=== PATIENT | female | born 1945 | race Caucasian/White ===

== ENCOUNTER 2016-09-08 08:38 | Emergency (ER) | payer OTHER ==
--- NOTE | ~2016-09-08 | CR72 ---
[facility]. [facility] A Service of [facility] & [facility] RADIOLOGY TEXT RESULTS PATIENT: HEMALATHA MATTSON LOCATION: SED : 44 UNIT #: [id number] AGE: [address]: Je Anguiano MD SEX: F ORDER DR: [id number] [place] [id number] E MR#: [id number] Acc #: [id number] NAME: HEMALATHA MATTSON : 1945 SEX: F STUDY DATE/TIME: 09/08/2016 8:57 UNIT: SED ROOM: STUDY DESCRIPTION: CR Chest Single View Portable Attending Physician: Je Anguiano M.D. Ordering Physician: Je Anguiano M.D. Primary Care Physician: Violetta Schrader M.D. MEDICAL IMAGING REPORT This report is preliminary unless electronic signature is present. EXAM Single portable AP view of the chest performed on 09/08/2016 at 09:27 hours. HISTORY 70-year-old female with shortness of breath. Patient has low potassium as well. Shortness of breath starting last night. FINDINGS In comparison to the previous exam of 08/30/2016, there has been no change in the dialysis catheter from right subclavian approach. Tip in the SVC. Heart is not enlarged and postsurgical findings from prior median sternotomy are seen with 8 intact sternal suture wires. The lungs are unchanged and no new pulmonary infiltrate or opacity is seen. No pneumothorax is present. IMPRESSION Stable chest with no change in the position of the right-sided central line. The heart is not enlarged and postsurgical changes from prior median sternotomy again appreciated. Dictated by... Timmy Saez M.D. THIS IS AN ELECTRONICALLY VERIFIED REPORT Timmy Saez M.D. at 09/08/2016 5:33 PM RP/gz TD: 09/08/2016 13:12 JOB #: [id number] MEDICAL IMAGING REPORT
[~2016-09-08 08:38] MED LIST: ASPIRIN81 MG PO; BAYER CHEWABLE81 MG PO; COREG PO; COUMADIN PO; DELTASONE20 MG PO; FLAGYL250 M1 PO; LASIX80 MG PO; LIPITOR80 MG PO; LISINOPRIL PO; LOMOTIL TABLET1 TAB PO; LOPRESSOR PO; LOVENOX SUBQ; MAXAPAP325 MG PO; MOBIC PO; OMNICEF300 MG PO; PAXIL40 MG PO; PEPCID AC20 M2 PO; PREDNISONE10 MG PO; PROTONIX PO
[2016-09-08 09:11] LABS: URINE SOURCE CLEAN CATCH
[2016-09-08 09:13] LABS: URINE APPEARANCE CLEAR; URINE BILIRUBIN NEG (NEG); URINE BLOOD 1+ (NEG); URINE COLOR YELLOW; URINE GLUCOSE NEG (NORM); URINE KETONE NEG (NEG); URINE LEUKOCYTE ESTERASE 1+ (NEG); URINE NITRATE NEG (NEG); URINE PROTEIN NEG (NEG); URINE SPECIFIC GRAVITY <=1.005 (1.003-1.035); URINE UROBILINOGEN 0.2 MG/DL (NORM)
[2016-09-08 09:23] LABS: MICRO INDICATED? YES
[2016-09-08 09:27] LABS: BASOPHIL# 0.2 X10e3 (0-0.3); BASOPHIL% 1.5 % (0-2.5); EOSINOPHIL# 0.2 X10e3 (0-0.7); EOSINOPHIL% 1.5 % (0.0-7.0); HEMATOCRIT 29.7 % (35.0-45.0); HEMOGLOBIN 9.7 gm/dL (12.0-16.0); LYMPHOCYTE# 0.8 X10e3 (1.0-3.5); MEAN CELL VOLUME 90.8 FL (83-96); MEAN CORPUSCULAR HEMOGLOBIN 29.7 PG (28-34); MEAN CORPUSCULAR HGB CONC 32.7 g/dL (30-36); MEAN PLATELET VOLUME 7.5 FL (6.5-11.5); MONOCYTE# 1.3 X10e3 (0-1.0); MONOCYTE% 9.6 % (3.0-12.0); NEUTROPHIL# 10.8 X10e3 (1.5-7.1); NEUTROPHIL% 81.4 % (40-75); PLATELET COUNT 204 X10e3 (140-420); RED BLOOD COUNT 3.27 X10e (3.90-5.30); RED CELL DISTRIBUTION WIDTH 16.6 % (11.0-15.5); WHITE BLOOD COUNT 13.3 X10e3 (4.0-10.5)
[2016-09-08 09:32] LABS: CULTURE INDICATED? YES; URINE BACTERIA 1+ (NEG); URINE SQUAMOUS EPITHELIAL CELL FEW /[HPF]; URINE WBC 0-2 /[HPF] (0-5)
[2016-09-08 09:34] LABS: POC - CKMB 1.7 ng/mL (0.0-7.9); POC - TROPONIN <0.05 ng/mL (<=0.05)
[2016-09-08 09:35] LABS: DIFF IND NO
[2016-09-08 10:03] LABS: BILIRUBIN, DIRECT 0.2 mg/dL (0.0-0.2); BILIRUBIN,INDIRECT 0.4 mg/dL (0.0-0.9); BILIRUBIN,TOTAL 0.6 mg/dL (0.2-2.0); BUN/CREATININE RATIO 10.19; CALCIUM SERUM 7.6 mg/dL (8.4-10.2); CREATININE SERUM 5.1 mg/dL (0.6-1.4); GLOM FILT RATE Estimated 8.9 mL/min (>60); POTASSIUM 4.3 mmol/L (3.5-5.1); PROTEIN TOTAL SERUM 5.9 g/dL (6.0-8.3)
== END 2016-09-08 10:34 | disposition home or self-care (01) ==
LOC: SED 08:38
PROVIDERS: Emergency Medicine
DX: N18.9 Chronic kidney disease, unspecified (principal); E78.5 Hyperlipidemia, unspecified; D64.9 Anemia, unspecified; F17.200 Nicotine dependence, unspecified, uncomplicated; K21.9 Gastro-esophageal reflux disease without esophagitis; E87.1 Hypo-osmolality and hyponatremia; Z90.710 Acquired absence of both cervix and uterus; Z88.5 Allergy status to narcotic agent
CPT/HCPCS: 36415; 71010; 80048; 80076; 81003; 82553; 83874; 84484; 85025; 87086; 99284

== ENCOUNTER 2016-11-01 13:31 | Inpatient (IN) | payer OTHER ==
--- NOTE | ~2016-11-01 | XA81 ---
[facility] A Service of [facility] RADIOLOGY TEXT RESULTS PATIENT: HEMALATHA MATTSON LOCATION: B 549-01 : 44 UNIT #: [id number] AGE: [address]: Violetta Schrader MD SEX: F ORDER DR: [id number] [facility] [address] [place], [place] [address] [id number] I MR#: [id number] Acc #: [id number] NAME: HEMALATHA MATTSON. : 1945 SEX: F STUDY DATE/TIME: 11/02/2016 14:53 UNIT: C5B ROOM: [facility] STUDY DESCRIPTION: XA CVC Remove Tunneled Cath WO Attending Physician: Vioeltta Schrader M.D. Ordering Physician: Penelope Ronquillo M.D. Primary Care Physician: Violetta Schrader M.D. MEDICAL IMAGING REPORT This report is preliminary unless electronic signature is present EXAM Tunnelled catheter removal. HISTORY Renal failure requiring dialysis. Patient underwent placement of a tunneled catheter on August 27, 2016. Her dialysis was stopped last Wednesday and removal of a catheter has been requested. PROCEDURE The risks, benefits, and alternatives to the procedure were explained to the patient and signed, informed consent was obtained. The patient was placed supine on the angiographic table, prepped and draped in the usual sterile fashion and initial fluoroscopic image was obtained which showed the preexisting right internal jugular vein catheter terminating within the superior vena cava. This image was permanently saved. Skin and subcutaneous tissues around the catheter were anesthetized with buffered lidocaine. The stitches were removed and the catheter was removed using a combination of blunt and sharp dissection and gentle manual traction. A final fluoroscopic image was obtained which showed no residual catheter fragment. Patient tolerated the procedure well and there were no immediate complications. Total fluoroscopy time was 0.1 minutes. IMPRESSION Technically successful removal of the patient's right internal jugular vein tunneled dialysis catheter in its entirety. Fluoroscopy was used during the procedure and permanent images were saved. Dictated by... Belia Humphrey M.D. [facility] A Service of [facility] RADIOLOGY TEXT RESULTS PATIENT: HEMALATHA MATTSON LOCATION: [place] [address] : 44 UNIT #: [id number] AGE: [address]: Violetta Schrader MD SEX: F ORDER DR: THIS IS AN ELECTRONICALLY VERIFIED REPORT Belia Humphrey M.D. at 11/03/2016 12:55 PM AFF/tmw TD: 11/03/2016 09:59 JOB #: [id number] MEDICAL IMAGING REPORT Page 1 of 1 COPY
--- NOTE | ~2016-11-01 | DS ---
Unit #: [id number] #: [id number] Patient: HEMALATHA MATTSON [id number] [address] [address] [id number] I MR#: [id number] NAME: HEMALATHA MATTSON ROOM: 549 Age: 71 Sex: F Admission Date: 11/01/2016 : 1945 Discharge Date: 11/09/2016 Attending Physician: Violetta Schrader M.D. Primary Care Physician: Violetta Schrader M.D. DISCHARGE SUMMARY DISPOSITION Date of discharge to rehab facility, November 09, 2016. FINAL DIAGNOSES 1. Sepsis. 2. Methicillin-resistant Staphylococcus aureus bacteremia. 3. Tricuspid valve vegetation/endocarditis. 4. L1-L2 diskitis. 5. Acute kidney injury with a history of chronic kidney disease. Patient has been off hemodialysis for two weeks. 6. Nonischemic cardiomyopathy with ejection fraction of 15% to 20%. 7. Chronic respiratory failure on home O2. 8. Chronic obstructive pulmonary disease. 9. Left-sided disk herniation at L1-L2 in addition to diskitis. 10. Chronic obstructive pulmonary disease. 11. Paroxysmal atrial fibrillation. 12. History of lacunar infarct in the past. 13. Left atrial myxoma/thrombus, status post resection in 2003. 14. Hypertension. 15. Nicotine abuse. DISCHARGE MEDICATIONS 1. IV vancomycin through December 15, 2016. 2. Vitamin D2 at 50,000 units q. weekly. 3. Furosemide 20 mg twice a day. 4. Paxil 40 mg daily. 5. Neurontin 200 mg three times a day. 6. Lovenox 30 mg subcutaneous daily. 7. Spiriva 18 mcg inhaler daily. 8. Tylenol 650 q.6 p.r.n. 9. Albuterol nebulizer treatment four times a day. 10. Phos-Lo two tablets b.i.d. 11. Westbrook 10/325 one tablet q.4 p.r.n. 12. Aspirin 81 mg daily. 13. Pepcid 20 mg daily. 14. Fish oil capsule three times a day. 15. Lipitor 80 mg daily. CONSULTATIONS DURING HOSPITALIZATION 1. Dr. Gilbert Ronquillo from renal services. 2. Dr. Jarvis Banks from spine surgery services. 3. Dr. Carvalho from infectious disease services. ADMITTING PHYSICIAN Unit #: [id number] #: [id number] Patient: HEMALATHA MATTSON Dr. Violetta Schrader. DISCHARGING PHYSICIAN Dr. Violetta Schrader. DIAGNOSTIC STUDIES LABORATORY: Lab workup on discharge: Sodium 135, potassium 4.2, chloride 92, BUN 25, creatinine 1.6. WBC 15, hemoglobin 12.9, hematocrit 41, platelet count 373,000. Blood cultures on November 01 and November 02 positive for MRSA. Blood cultures done on November 04, most recent one, was negative for any growth. IMAGING: Significant imaging studies done during hospitalization: CT scan: CT scan of the head without contrast which shows no acute intracranial abnormalities. CT scan of the abdomen and pelvis was done which shows no acute finding in the abdomen or pelvis. No free fluid or inflammatory stranding, mild atelectasis in the posterior lung bases, mild sigmoid diverticulosis but no diverticulitis. MRI of the lumbar which shows findings are suspicious for diskitis involving the L1-L2 disc, especially towards the left side. There has been a significant change to the disc since the previous exam. There is no evidence of paraspinous abscess. There is also a left-sided focal disc herniation at L1-L2 that is new. Patient also has moderate degenerative changes at the lower 4 lumbar discs. PROCEDURE PERFORMED DURING HOSPITALIZATION Tunneled catheter removal. Patient underwent placement of the tunneled catheter on August 27, 2016. Dialysis has been stopped and most likely this infection was secondary to tunneled catheter and that was removed on November 03, [address] Humphrey, interventional radiologist. HOSPITAL COURSE Ms. Hemalatha Mattson is a 71-year-old female who is very well known to me from multiple admissions and from office setting, came because of abdominal pain, generalized weakness, inability to ambulate. Patient was found in the bathtub and could not wake her up, plus she could not get up. EMS was called. Patient was brought to ER. Patient was found to be in sepsis. Blood culture grew MRSA. This was most likely secondary to tunneled catheter. That was removed on . Infectious disease was consulted. Patient was started on IV antibiotics. She is on vancomycin at this time and that needs to be continued until December 16, 2016. SVETA was performed which showed tricuspid vegetation. The patient does have endocarditis too. MRI of the back showed L1-L2 diskitis and disk herniation. Dr. Banks was consulted. As per Dr. Banks, she needs to continue IV antibiotics for six weeks or so. Lumbar brace when she is up and ambulatory as tolerated. If her condition worsens or her pain is insufferable, then debridement and stabilization would be a reasonable option to pursue. Patient had acute kidney injury two months ago, was on hemodialysis but she has stopped hemodialysis almost now for two weeks. Dr. Ronquillo was consulted during hospitalization and we need to continue to observe her renal function. We need to continue to avoid angiotensin receptor blockers and CARINE inhibitors, continue to avoid NSAIDs, continue to avoid Unit #: [id number] #: [id number] Patient: HEMALATHA MATTSON PPIs if possible. Patient does have significant cardiac disease and cardiomyopathy. Fluid status needs to be observed off and on. Patient is on Lasix 20 mg b.i.d. That may need to be increased if it gets worse. PHYSICAL EXAMINATION VITAL SIGNS: On discharge: Blood pressure is 120/86, respiratory rate 18, pulse 73, temperature 98.2. CHEST: Decreased air entry. CARDIOVASCULAR: S1, S2 positive. Regular rhythm. ABDOMEN: Soft. EXTREMITIES: Pulses are palpable. A lot of tenderness in the lumbar spine area. DISCHARGE INSTRUCTIONS 1. The patient will be discharged to rehab facility after PICC line placement. 2. Medications as per med rec. 3. Dr. Potter to follow the patient at rehab. 4. BMP twice a week. 5. CBC once a week. 6. CRP and ESR q. weekly. 7. IV antibiotics through December 16, 2016. 8. Discussed with patient's about plan of care. Dictated by... Heidi Archer TD: 11/09/2016 10:35 JOB #: [id number] DISCHARGE SUMMARY Page 1 of 1 X Violetta Schrader MD X DISCHARGE SUMMARY
--- NOTE | ~2016-11-01 | MR113 ---
[facility] A Service of [facility] & [facility] RADIOLOGY TEXT RESULTS PATIENT: HEMALATHA MATTSON LOCATION: [facility] 549-01 : 44 UNIT #: [id number] AGE: [address]: Violetta Schrader MD SEX: F ORDER DR: [id number] [facility] [address] [place], [place] [address] [id number] I MR#: [id number] Acc #: [id number] NAME: HEMALATHA MATTSON. : 1945 SEX: F STUDY DATE/TIME: 11/03/2016 21:04 UNIT: [facility] ROOM: [facility] STUDY DESCRIPTION: MR Lumbar Wo Contrast Attending Physician: Violetta Schrader M.D. Ordering Physician: Tj Carvalho M.D. Primary Care Physician: Violetta Schrader M.D. MRI CENTER REPORT This report is preliminary unless electronic signature is present. EXAM Lumbar spine MRI HISTORY Back pain, weakness and difficulty walking, accompanied by sepsis. Sudden onset of back pain 3 days ago. TECHNIQUE Multiplanar imaging of the lumbar spine was performed with short and long TR and compared with the previous examination dated 03/05/2015. FINDINGS At L1-2, the disc is degenerated. There is relatively brighter signal in this disc compared to the other lumbar discs and this is new since the previous examination. There are new reactive endplate changes on both sides of the disc. There is a focal left-sided disc herniation at this level as well. The increased signal in the disc is suspicious for diskitis. No paraspinous fluid collections are seen. At L2-3, L3-4 and L4-5, there is disc space narrowing with broad-based posterior disc bulging. This causes moderate canal narrowing at each of these levels. At L5-S1, there is disc space collapse with reactive endplate changes along the posterior disc margin with mild central stenosis. Foraminal narrowing is mild bilaterally as well. The conus is normal. No paraspinous soft tissue masses are seen. IMPRESSION 1. Findings are suspicious for diskitis involving the L1-2 disc especially toward the left side. There has been significant change to this disc since the previous exam. There is no evidence of paraspinous STS. [facility] A Service of [facility] & [facility] RADIOLOGY TEXT RESULTS PATIENT: HEMALATHA MATTSON LOCATION: [facility] 549-01 : 44 UNIT #: [id number] AGE: [address]: Violetta Schrader MD SEX: F ORDER DR: dwayne. 2. There is also a left-sided focal disc herniation at L1-2 that is new since the previous scan in 2014. 3. Moderate degenerative changes at the lower 4 lumbar discs are again noted and show little change from the previous exam. STAT * RESULT Dictated by... Trevin Jeffers M.D. THIS IS AN ELECTRONICALLY VERIFIED REPORT Trevin Jeffers M.D. at 11/04/2016 4:26 PM MJ/hernandez TD: 11/04/2016 11:02 JOB #: [id number] MRI CENTER REPORT Page 1 of 1 COPY
--- NOTE | ~2016-11-01 | EKG ---
PATIENT: HEMALATHA MATTSON UNIT #: [id number] Ventricular Rate: 103 BPM Atrial Rate: 103 BPM P-R Interval: 224 ms QRS Duration: 90 ms Q-T Interval: 338 ms QTC Calculation(Bezet): 442 ms Calculated R [place]: 87 degrees Calculated T [place]: 86 degrees Diagnosis Line: Sinus tachycardia with 1st degree A-V block with Diagnosis Line: frequent Premature ventricular complexes Diagnosis Line: Low voltage QRS Diagnosis Line: Borderline ECG Diagnosis Line: When compared with ECG of 20-AUG-2016 12:11, Diagnosis Line: Premature ventricular complexes are now Present Diagnosis Line: UT interval has increased Diagnosis Line: T wave inversion no longer evident in Anterior Diagnosis Line: leads Diagnosis Line: Confirmed by ENRIQUE VERDIN MD ([id number]) on Diagnosis Line: 11/01/2016 4:00:00 PM INTERPRETING MD: LLOYD
--- NOTE | ~2016-11-01 | CT71 ---
[facility] A Service of [facility] RADIOLOGY TEXT RESULTS PATIENT: HEMALATHA MATTSON LOCATION: C5 549-01 : 44 UNIT #: [id number] AGE: [address]: Violetta Schrader MD SEX: F ORDER DR: [id number] [facility] [address] [place], [place] [address] [id number] I MR#: [id number] Acc #: [id number] NAME: HEMALATHA MATTSON. : 1945 SEX: F STUDY DATE/TIME: 11/01/2016 13:27 UNIT: CEDOF ROOM: 01746 STUDY DESCRIPTION: CT Head Wo Contrast Attending Physician: Violetta Schrader M.D. Ordering Physician: Trevin Mccloud M.D. Primary Care Physician: Violetta Schrader M.D. MEDICAL IMAGING REPORT This report is preliminary unless electronic signature is present EXAM CT head without contrast, 11/01/2016 HISTORY 71-year-old female with confusion and altered mental status beginning last night. Headache beginning today. COMPARISON CT head 08/17/2016 TECHNIQUE Routine unenhanced axial images performed through the brain. This CT exam was performed with one or more of the following radiation dose reduction techniques: automatic exposure control, adjustment of mA and/or kV according to patient size, and iterative reconstruction. FINDINGS No hemorrhage, acute infarction, mass lesion, or abnormal extraaxial fluid collection. No midline shift or focal mass effect. Ventricular system normal in size and configuration. Mild generalized atrophy is unchanged. Moderate chronic small vessel disease is unchanged. Remote right cerebellar hemisphere infarct again noted. No acute bony abnormality. Visualized paranasal sinuses and mastoid air cells are clear. IMPRESSION 1. No acute intracranial abnormality. 2. Stable age-related atrophy and moderate chronic small vessel disease. Remote infarct right cerebellar hemisphere is unchanged. Dictated by... [facility] A Service of [facility] RADIOLOGY TEXT RESULTS PATIENT: HEMALATHA MATTSON LOCATION: C5B 549-01 : 44 UNIT #: [id number] AGE: [address]: Violetta Schrader MD SEX: F ORDER DR: Phil Powell M.D. THIS IS AN ELECTRONICALLY VERIFIED REPORT Phil Powell M.D. at 11/02/2016 8:46 AM Ryan TD: 11/02/2016 00:31 JOB #: [id number] MEDICAL IMAGING REPORT Page 1 of 1 COPY
--- NOTE | ~2016-11-01 | CO ---
Unit #: [id number] #: [id number] Patient: HEMALATHA MATTSON [id number] [address] [address] [id number] I MR#: [id number] NAME: HEMALATHA MATTSON ROOM: [facility] Age: 71 Sex: F Admission Date: 11/01/2016 : 1945 Attending Physician: Violetta Schrader M.D. Primary Care Physician: Violetta Schrader M.D. Requesting Physician: Violetta Schrader M.D. CONSULTATION REPORT HISTORY OF PRESENT ILLNESS The patient is a 71-year-old who reports an increasing history of back pain over the past 2 weeks. She is known to have chronic disk disease in her lumbar spine. She suffers with acute renal failure and MRSA sepsis. SOCIAL HISTORY She is a nonsmoker and nondrinker. ALLERGIES Morphine. HOME MEDICATIONS 1. Xanax. 2. Lortab. 3. Aspirin. 4. Atorvastatin. REVIEW OF SYSTEMS Fourteen point review of systems is negative. PHYSICAL EXAMINATION GENERAL: She is laying comfortably in her hospital room as long as she does not move suddenly. NEUROLOGIC: She has 5/5 strength in her lower extremities. SPINE: Back is minimally tender to palpation. DIAGNOSTIC STUDIES IMAGING: MRI of the lumbar spine shows changes and fluid consistent with L1 diskitis. There is no paraspinous abscess or epidural abscess. There appears to be a left-sided disk herniation at L1-L2 in addition to the diskitis. ASSESSMENT Lumbar diskitis. RECOMMENDATION Aggressive IV antibiotics for six weeks, lumbar brace when she is up and ambulatory as tolerated. If her condition worsens or her pain is insufferable, then debridement and stabilization would be a reasonable option to pursue. Dr. Gilbert Ronquillo is following for her renal issues. Dictated by... Jarvis Banks M.D. Unit #: [id number] #: [id number] Patient: HEMALATHA MATTSON JTM/gz TD: 11/04/2016 14:12 JOB #: [id number] CONSULTATION REPORT Page 1 of 1 X Jarvis Banks MD CONSULTATION REPORT
--- NOTE | ~2016-11-01 | CT4 ---
[facility] A Service of [facility] RADIOLOGY TEXT RESULTS PATIENT: HEMALATHA MATTSON LOCATION: [facility] 549-01 : 44 UNIT #: [id number] AGE: [address]: Violetta Schrader MD SEX: F ORDER DR: [id number] [facility] [address] [place], [place] [address] [id number] I MR#: [id number] Acc #: [id number] NAME: HEMALATHA MATTSON : 1945 SEX: F STUDY DATE/TIME: 11/01/2016 17:00 UNIT: [facility] ROOM: [facility] STUDY DESCRIPTION: CT Abd and Pelv Wo Cont Attending Physician: Violetta Schrader M.D. Ordering Physician: Elena Ventura M.D. Primary Care Physician: Violetta Schrader M.D. MEDICAL IMAGING REPORT This report is preliminary unless electronic signature is present EXAM CT abdomen and pelvis without contrast. HISTORY Diffuse abdomen and back pain since yesterday. This CT exam was performed with one or more of the following radiation dose reduction techniques: automatic exposure control, adjustment of mA and/or kV according to patient size, and iterative reconstruction. FINDINGS CT abdomen and pelvis was performed without contrast. CT ABDOMEN: Mild atelectasis in the posterior lung bases. The liver, gallbladder, spleen, pancreas, kidneys, and adrenal glands are normal. Small umbilical hernia containing fat. No bowel dilatation. No ascites or inflammatory stranding. Normal caliber abdominal aorta. CT PELVIS: Moderate sigmoid diverticulosis. No diverticulitis. Hysterectomy. No free fluid or inflammatory stranding. The urinary bladder is normal. IMPRESSION 1. No acute findings in the abdomen or pelvis. 2. No free fluid or inflammatory stranding. 3. Mild atelectasis in the posterior lung bases. 4. Mild sigmoid diverticulosis but no diverticulitis. 5. Incidental small umbilical hernia containing fat. No bowel herniation. Dictated by... Miguel Melendez M.D. [facility] A Service of [facility] RADIOLOGY TEXT RESULTS PATIENT: HEMALATHA MATTSON LOCATION: [place] [address]- : 44 UNIT #: [id number] AGE: [address]: Violetta Schrader MD SEX: F ORDER DR: THIS IS AN ELECTRONICALLY VERIFIED REPORT Miguel Melendez M.D. at 11/02/2016 11:01 AM Fiona TD: 11/02/2016 05:37 JOB #: [id number] MEDICAL IMAGING REPORT Page 1 of 1 COPY
--- NOTE | ~2016-11-01 | XA166 ---
[facility] A Service of [facility] RADIOLOGY TEXT RESULTS PATIENT: HEMALATHA MATTSON LOCATION: [facility] [address] : 44 UNIT #: [id number] AGE: [address]: Violetta Schrader MD SEX: F ORDER DR: [id number] [facility] [address] [place], [place] [address] [id number] I MR#: [id number] Acc #: [id number] NAME: HEMALATHA MATTSON. : 1945 SEX: F STUDY DATE/TIME: 11/09/2016 14:12 UNIT: [facility] ROOM: [facility] STUDY DESCRIPTION: XA PICC Line Placement WO Port Attending Physician: Violetta Schrader M.D. Ordering Physician: Violetta Schrader M.D. Primary Care Physician: Violetta Schrader M.D. MEDICAL IMAGING REPORT This report is preliminary unless electronic signature is present EXAM PICC line placement ultrasound and fluoroscopy 11/09/2016 HISTORY Patient being discharged for long-term antibiotic therapy. PRE-PROCEDURE The procedure was explained to the patient and/or patient patient account representative including risks, benefits, potential complications and potential for alternative forms of treatment. Informed consent was obtained, and prior to initiating the procedure a formal timeout procedure was performed. PROCEDURE Using full standard sterile barrier technique, including caps, gowns, gloves, masks, as well as sterile skin preparation and standard sterile draping, the right arm was prepped and draped in the usual fashion, and real-time sterile ultrasound guidance was used to localize an arm vein and to confirm vessel patency. A hard copy ultrasound image was recorded. Right basilic vein approach. After local anesthesia with 1% Xylocaine, the vein was punctured using real-time sterile ultrasound guidance, and an 0.018 guidewire was advanced into the superior vena cava, using fluoroscopic guidance. A 4-Occitan single-lumen PICC was then measured and deployed with the tip positioned at the cavoatrial junction. The position of the line was documented with a radiographic image. The line was secured in place with an adhesive dressing and an antibiotic patch was applied. Total fluoro time was 0.2 minutes. Line trimmed to 42 cm. Total exposure 1 mGy air kerma. IMPRESSION Successful placement of a 4-Occitan single-lumen PowerPICC via the right arm under ultrasound and fluoroscopic guidance. The tip of the PICC is in good position at the cavoatrial junction. [facility] A Service of [facility] RADIOLOGY TEXT RESULTS PATIENT: HEMALATHA MATTSON LOCATION: [facility] 549-01 : 44 UNIT #: [id number] AGE: [address]: Violetta Schrader MD SEX: F ORDER DR: Dictated by... Jarvis Oswald M.D. THIS IS AN ELECTRONICALLY VERIFIED REPORT Jarvis Oswald M.D. at 11/11/2016 7:19 AM MARCIANO/stephani TD: 11/09/2016 17:34 JOB #: [id number] MEDICAL IMAGING REPORT Page 1 of 1 COPY
--- NOTE | ~2016-11-01 | CO ---
Unit #: [id number] #: [id number] Patient: HMEALATHA MATTSON [id number] [address] [place], [place] [address] [id number] MR#: [id number] NAME: HEMALATHA MATTSON ROOM: [facility] Age: 71 Sex: F Admission Date: 11/01/2016 : 1945 Attending Physician: Violetta Schrader M.D. Primary Care Physician: Violetta Schrader M.D. Consultation Date: 11/02/2016 CONSULTATION REPORT REASON FOR CONSULTATION Antibiotic management in a patient with positive blood cultures. HISTORY OF PRESENT ILLNESS This is a 71-year-old female that reports that she was doing fairly well at home until 24 hours prior to admission when she began with pain from her neck down. The patient reports most of her pain is involving her spine and her abdomen. The patient was admitted to the hospital and she was noted to have fever, leukocytosis and 2/2 positive blood cultures for gram-positive cocci in clusters. Her urinalysis was fairly unremarkable. The patient was started on vancomycin and Rocephin and ID was asked to evaluate for possible blood cultures. PAST MEDICAL HISTORY Respiratory failure, COPD, open-heart surgery, lacunar stroke, atrial myxoma, history of spine cancer and arthritis. PAST SURGICAL HISTORY Myxoma resection, total hysterectomy, hip joint injection secondary to pain. SOCIAL HISTORY The patient denies any alcohol, tobacco or drug use. ALLERGIES Morphine. MEDICATIONS The patient is currently on vancomycin and Rocephin. For other medications, please refer to patient's MAR. REVIEW OF SYSTEMS The patient does report some fever and chills at home prior to admission. She reports no nausea, vomiting, diarrhea or chest pain but she does report abdominal pain and back pain. She denies any headaches to me at this time. She denies any nonhealing wounds. She does have a tunnel catheter in her right chest that she reports does have some tenderness. PHYSICAL EXAMINATION GENERAL APPEARANCE: This is a no apparent distress female who, however, is in obvious pain when moving. VITAL SIGNS: Temperature 97.7 with a T-max of 101.9. Pulse 78. Blood pressure 112/58. Respiratory rate 18. HEENT: Her pupils are equal. Unit #: [id number] #: [id number] Patient: HEMALATHA MATTSON NECK: Supple. CARDIOVASCULAR: S1, S2. Regular rate and rhythm. PULMONARY: Clear to auscultation bilaterally with no wheezes or rhonchi noted. ABDOMEN: Positive bowel sounds. Soft. However, there is diffuse tenderness in all four quadrants with palpation. EXTREMITIES: No clubbing, cyanosis or edema. SPINE: No open wounds, however, significant tenderness when the patient is trying to move from left to right. She has a tunnel catheter in her right chest without any evidence of cellulitis or drainage. However, there is minimal tenderness on palpation. DIAGNOSTIC STUDIES LABORATORY: BUN 32, creatinine 2.1, sodium 132, potassium 3.5, chloride 100, CO2 24, bilirubin 0.5, AST 28, ALT 20. Lactic acid on admission was 1.3. WBC count 19.4 which is increased from 16.3, hemoglobin 12.3, hematocrit 39.0, platelets 221. Urinalysis is fairly unremarkable. Cultures: Blood cultures, 2/, with gram-positive cocci in clusters about two hours apart. IMAGING: CT scan of the abdomen and pelvis for pain shows no acute findings in the abdomen or pelvis. CT of the head was done for confusion. She is fairly clear to me at this time and there are no intracranial findings. Chest x-ray shows no focal pulmonary infiltrates. IMPRESSION This is a 71-year-old female with about 24-hour history of pain from the neck down, found to have some fever and chills and notable leukocytosis and bacteremia with gram-positive cocci. At this time, I suspect that she has a tunnel catheter infection. However, she reports that she has not had dialysis for two weeks. I discussed with the nursing staff and they are in the progress of getting this tunnel catheter removed and we will also request that Interventional Radiology culture the tip and sent for culture. We will follow the ID of the gram-positive cocci. We will continue vancomycin and Rocephin at this time. The patient will also need a 2D echocardiogram to evaluate for endocarditis due to patient's bacteremia. The patient also will have inflammatory markers checked and once her pain is under control, she may require a CT scan or MRI of her spine to evaluate for diskitis or osteomyelitis. We will have the nursing staff continue to dose and adjust vancomycin as the patient was recently on dialysis and we will need to monitor very closely. We will check a CBC in the a.m. Thank you for allowing us to participate in the care of this patient and further recommendations to follow pending the patient's clinical course. Dictated by... Isabell Stallings A.P.R.N. for Heidi Reyes/lucas TD: 11/02/2016 09:31 JOB #: [id number] Unit #: [id number] #: [id number] Patient: HEMALATHA MATTSON CONSULTATION REPORT Page 1 of 1 X X CONSULTATION REPORT
--- NOTE | ~2016-11-01 | HP ---
Unit #: [id number] #: [id number] Patient: HEMALATHA MATTSON [id number] [facility] [address] [facility]. [place], [place] [address] [id number] I MR#: [id number] NAME: HEMALATHA MATTSON ROOM: 549 Age: 71 Sex: F Admission Date: 11/01/2016 : 1945 Attending Physician: Violetta Schrader M.D. Primary Care Physician: Violetta Schrader M.D. HISTORY AND PHYSICAL CHIEF COMPLAINT Abdominal pain, generalized weakness, and inability to ambulate. HISTORY OF PRESENTING ILLNESS Patient is a 71-year-old female who is very well known to me and was recently discharged from [facility] on August 31 after she had a lengthy stay in the hospital. At that time, patient had acute renal failure and was started on hemodialysis. She was getting outpatient hemodialysis, and that was stopped last week. She was told that she can wait for hemodialysis at that time. She did have a tunneled catheter on the right side. She came to the office for a followup visit, and she was awake, alert, and oriented x3. She drove to my office and was doing well. She did have good improvement. Per patient's , on Wednesday night she started feeling very tired and fatigued. She did eat. She woke up on Wednesday morning and was again complaining of weakness and tiredness. She did eat that day also. She went to the bathroom and could not come out of the bathtub. She was very sleepy, and they could not wake her up. Her pulse rate was high, and pulse oximetry was 94%. Somehow, her daughter, Demetra, got her out of the bathtub and put her on the bed and was going to call EMS and then she stopped. She got a little bit better. They fed her and everything was going well until Wednesday morning when she was screaming with back pain and abdominal pain. EMS was called, and patient was brought to the ER. Patient was found to have a temperature of 101.9 and admitted to the hospital with sepsis. Patient also had some altered mental status and was kind of lethargic. Patient is awake, alert, and oriented x2 at this time. Although she does still look kind of lethargic, she wakes up and she answers appropriately. I did call patient's and took a lot of history. PAST MEDICAL HISTORY 1. Chronic kidney disease with history of acute renal failure in August 2016. She was on hemodialysis, and hemodialysis has been stopped for the last one week. 2. History of dialysis catheter placement. 3. Chronic respiratory failure on home O2. 4. Chronic obstructive pulmonary disease. 5. History of AR. 6. History of paroxysmal atrial fibrillation. 7. Congestive heart failure with left ventricular ejection fraction of 15% to 20%. 8. 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 9. Anemia. Unit #: [id number] #: [id number] Patient: HEMALATHA MATTSON 10. History of lacunar infarct in the past. PAST SURGICAL HISTORY 1. History of left myxoma resection in 2003. 2. Hysterectomy. SOCIAL HISTORY Patient is and lives with her . She is a smoker. According to her, she has tried to quit smoking. No alcohol abuse or drug abuse. FAMILY HISTORY Unremarkable. ALLERGIES MORPHINE. HOME MEDICATIONS 1. Fish oil capsule 1000 mg 3 times daily. 2. Neurontin 300 mg 3 times daily. 3. Lasix 40 mg twice daily. 4. Aspirin 81 mg daily. 5. Heartburn prevention 20 mg daily. 6. Paxil 40 mg daily. 7. PhosLo 2 tablets 3 times daily. 8. Vitamin D2 at 50,000 units monthly. 9. Lipitor 80 mg daily. 10. Symbicort 160/4.5 at 2 puffs inhaler twice daily. 11. Spiriva 1 inhaler daily. REVIEW OF SYSTEMS Patient has no history of fever at home, although per her friend, they did not document it. She does have a history of generalized fatigue and tiredness. No history of chest pain. She did complain of abdominal pain, although CT scan of the abdomen was done and was negative. No complaint of diarrhea. No complaint of any skin problem. The rest is as per history of present illness. PHYSICAL EXAMINATION GENERAL: Patient is lying in bed and seems to be somewhat lethargic although is answering all the questions appropriately and following all the commands. VITAL SIGNS: Blood pressure is 110/53, respiratory rate 20, pulse 71, and temperature 98.9 with T-max of 101.9. HEENT: Head is normocephalic. Eye movements are normal. NECK: Supple. CHEST: Fair air entry, decreased at the bases. CARDIOVASCULAR: S1 and S2 positive. Regular rhythm. ABDOMEN: Soft. Mild tenderness all over. Bowel sounds are positive. EXTREMITIES: Negative edema. CENTRAL NERVOUS SYSTEM: Awake, alert, and oriented x3, but lethargic. Neuro exam was limited. DIAGNOSTIC STUDIES LABORATORY: Troponin was less than 0.05. WBC 16.3, hemoglobin 13.9, hematocrit 43.2, and platelet count of 234,000 with 80% neutrophils. Lactic acid 2.2. Sodium 133, potassium 3.9, chloride 93, BUN 37, and creatinine 2.5. Liver enzymes are normal. Urinalysis is normal. Unit #: [id number] #: [id number] Patient: HEMALATHA MATTSON Influenza A and B were negative. Blood culture is positive for gram-positive cocci in clusters. IMAGING: CT scan of the abdomen and pelvis without contrast was done which showed no acute finding. CT scan of the head without contrast was done which showed no acute intracranial abnormalities. Chest x-ray was done which showed stable cardiomegaly, no pneumothorax, mild chronic-appearing interstitial opacities, and no focal pulmonary infiltrate. ASSESSMENT Patient is being admitted to telemetry unit with: 1. Sepsis. 2. Gram-positive cocci in cluster bacteremia. 3. Tunneled-catheter infection. 4. Renal failure. 5. Nonischemic cardiomyopathy with ejection fraction of 15% to 20%. 6. Chronic respiratory failure, on home oxygen. 7. Chronic obstructive pulmonary disease. 8. History of paroxysmal atrial fibrillation. 9. History of lacunar infarct in the past. PLAN Admit to telemetry unit. Dr. Ronquillo has been consulted. Patient's Lasix is being decreased to 20 mg b.i.d. Patient received one liter of IV fluids. Strict I/Os are being done because of the cardiomyopathy. Lab workup will be repeated tomorrow morning. Tunneled-catheter has been already taken out by Interventional Radiology. A 2D echocardiogram will be done to rule out any infective endocarditis. Infectious Disease has been consulted. Home medications have been reviewed and adjusted. The plan of care has been discussed with patient's at length. The rest is as per progress note. Dictated by Heidi Archer TD: 11/02/2016 17:07 JOB #: [id number] HISTORY AND PHYSICAL Page 1 of 1 X Violetta Schrader MD HISTORY AND PHYSICAL
--- NOTE | ~2016-11-01 | CR72 ---
[facility] A Service of [facility] RADIOLOGY TEXT RESULTS PATIENT: HEMALATHA MATTSON LOCATION: [place] [address] : [birth year] UNIT #: [id number] AGE: [address]: Violetta Schrader MD SEX: F ORDER DR: [id number] [facility] [address] [facility]. [place], [place] [address] [id number] I MR#: [id number] Acc #: [id number] NAME: HEMALATHA MATTSON : 1945 SEX: F STUDY DATE/TIME: 11/01/2016 12:54 UNIT: CEDOF ROOM: 33114 STUDY DESCRIPTION: CR Chest Single View Portable Attending Physician: Violetta Schrader M.D. Ordering Physician: Trevin Mccloud M.D. Primary Care Physician: Violetta Schrader M.D. MEDICAL IMAGING REPORT This report is preliminary unless electronic signature is present EXAM Portable chest 11/01/2016 HISTORY Shortness of air for 24 hours. COMPARISON Chest 09/08/2016 FINDINGS Frontal chest demonstrates a stable right IJ hemodialysis catheter. Cardiomegaly is stable. There are some mild chronic-appearing interstitial opacities bilaterally. No focal infiltrates. No pneumothorax. IMPRESSION 1. Stable cardiomegaly. No pneumothorax. Mild chronic-appearing interstitial opacities bilaterally. No focal pulmonary infiltrates. Dictated by... Phil Powell M.D. THIS IS AN ELECTRONICALLY VERIFIED REPORT Phil Powell M.D. at 11/02/2016 8:45 AM DERIK/nga TD: 11/02/2016 00:02 JOB #: [id number] MEDICAL IMAGING REPORT Page 1 of 1 COPY
--- NOTE | ~2016-11-01 | CO ---
Unit #: [id number] #: [id number] Patient: HEMALATHA MATTSON [id number] [address] [place], [place] [address] [id number] MR#: [id number] NAME: HEMALATHA MATTSON ROOM: [facility] Age: 71 Sex: F Admission Date: 11/01/2016 : 1945 Attending Physician: Violetta Schrader M.D. Primary Care Physician: Violetta Schrader M.D. Consultation Date: 11/02/2016 CONSULTATION REPORT REASON FOR CONSULTATION Renal failure. Thank you very much for asking us to see this patient in consultation. HISTORY OF PRESENT ILLNESS Ms. Hemalatha Mattson is 71-year-old female, who presented to the hospital here last night with abdominal pain, back pain, fevers, and was admitted for possible sepsis. The patient apparently has had blood cultures already growing out 2 out of 2 gram positive cocci. When I got the call last night from the emergency room about the patient, instructed that the patient had a Shiley catheter that she has been getting dialysis from. I asked the nurse if they were sure it was a Shiley, she says she was not sure, but she would check and call back in 15 minutes which I did and she said she had multiple nurses checked and it was definitely a Shiley catheter. At which time, I have ordered for the Shiley to remove last night. However, apparently, they were unable to remove it and in reviewing it this morning, it definitely is not a Shiley, it is a tunneled catheter. The patient was on hemodialysis since late August with [facility] when she was in the hospital here in August where she had an acute MN infection, etc. and the patient was taken off dialysis last week by Dr. Forrester in our group, and she had an appointment for Wednesday and blood work tomorrow. She presented here with a creatinine of 2.5. She is currently still having some abdominal discomfort, although she says it is better. She is having still some intermittent back pain. She denies any chest pain or any shortness of air. She has had some nausea, but no vomiting. She denies any diarrhea. She did undergo a CT scan of her abdomen and pelvis, which showed no acute pathology except for some diverticulosis, but no diverticulitis. She had a CT scan of her head due to the fact that her daughter states she was intermittently getting confused as well which was also negative for any acute finding, although she did have a history of an old lacunar infarct. She again had a chest x-ray in the emergency room as well, that showed no evidence of any pulmonary edema, just some mild chronic interstitial scarring. PAST MEDICAL HISTORY History of acute renal failure since 08/2016 was on dialysis up until last week and has a tunneled catheter in place. History of diverticulosis; history of atherosclerotic coronary artery disease, status post MN with decreased EF around 15% to 20%; history of atrial fibrillation in the past; history of lacunar infarct in the past; history of atrial myxoma, status post surgery in 2013. MEDICATIONS Unit #: [id number] #: [id number] Patient: HEMALATHA MATTSON Her medicines at home include fish oil, Neurontin 300 mg t.i.d., Lasix 40 mg b.i.d., aspirin 81 mg a day, she is on Paxil 40 mg a day, PhosLo 2 with each meal, Lipitor 80 mg a day, several inhalers. ALLERGIES Include morphine. SOCIAL HISTORY She was a chronic smoker up until August. No alcohol. FAMILY HISTORY Noncontributory. PHYSICAL EXAMINATION GENERAL: She is alert and oriented currently. VITAL SIGNS: Her T-max is 101.9, pulse is 72 to 93, blood pressure is 111 to 126 systolic over 50s to 70 diastolic. HEENT: She is normocephalic and atraumatic. Pupils are equal, round, and reactive to light. Extraocular muscles are intact. Hearing appears to be normal. Mouth is clear. No erythema. No exudate. NECK: Supple. No adenopathy. She does have a tunneled catheter in right side of her neck. LUNGS: She has a few wheezes bilaterally. No rales or rhonchi. ABDOMEN: Bowel sounds positive. Some mild diffuse tenderness. No rebound or guarding. EXTREMITIES: She has no lower extremity swelling. Her pulses are intact in upper and lower extremities. JOINTS: No joint pain or joint swelling. SKIN: No rashes. NEURO: Appears to be intact motor and sensory grossly. : Deferred. DIAGNOSTIC STUDIES LABORATORY RESULTS: This morning shows sodium of 132, potassium 3.5, chloride 100, bicarb 24, BUN and creatinine 32 and 2.1 with glucose of 149, calcium is 8.3. Lactic acid was 2.2 last night. Her hemoglobin is 12.3, white count 19,400, and platelets 221,000. UA shows specific gravity of 1.011; no rbc's, wbc's, or protein. Blood cultures are 2 out of 2 gram-positive cocci. ASSESSMENT AND PLAN 1. Acute renal failure. Renal functions apparently has improved, the creatinine actually down to 2.1 now. She has not had dialysis in over a week, and hopefully will able to keep her off dialysis. We will have tunneled catheter removed by IR this morning. We will follow electrolytes. We would continue to avoid angiotensin receptor blockers and CARINE inhibitors in her at this moment in time, due to her renal insufficiency. We will follow electrolytes. Also we would probably try to stay off PPIs if possible as well. Currently, she is on Pepcid which is okay from the Renal standpoint. I am going to go ahead and stop her fluids due to the fact that she has severe cardiomyopathy and I am afraid the fluid overloaded as well. I am going to go ahead and lower her Lasix to 20 b.i.d. and we will check her phosphorus as well. She continues on her PhosLo and we might be able to stop that as well. She did receive vancomycin and Rocephin in the emergency room and further antibiotics per Infectious Disease. Certainly, once the Infectious Disease identified the infection bug, we will try to get off vancomycin if possible due to the nephrotoxicity of the drug. Unit #: [id number] #: [id number] Patient: HEMALATHA MATTSON 2. Anemia, hemoglobin is good now. 3. Fever, possible etiologies per Infectious Disease now, tunneled catheter versus heart versus GI versus other. Again, further antibiotics per them. Again, we will get tunneled catheter out and culture tip. 4. History of cardiomyopathy with decreased ejection fraction, status post myocardial infarction. Again, discontinue fluids and reduce Lasix. Dictated by.Facundo Ronquillo M.D. EAN/dawna TD: 11/03/2016 01:17 JOB #: [id number] CONSULTATION REPORT Page 1 of 1 X Elisabeth Ronquillo MD CONSULTATION REPORT
[2016-11-01 12:57] LABS: BASOPHIL# 0.1 X10e3 (0-0.3); BASOPHIL% 0.4 % (0-2.5); HEMATOCRIT 43.2 % (35.0-45.0); HEMOGLOBIN 13.9 gm/dL (12.0-16.0); LYMPHOCYTE% 6.2 % (17.0-45.0); MEAN CELL VOLUME 90.6 FL (83-96); MEAN CORPUSCULAR HEMOGLOBIN 29.1 PG (28-34); MEAN CORPUSCULAR HGB CONC 32.1 g/dL (30-36); MEAN PLATELET VOLUME 9.1 FL (6.5-11.5); MONOCYTE# 2.2 X10e3 (0-1.0); MONOCYTE% 13.4 % (3.0-12.0); NEUTROPHIL# 13.1 X10e3 (1.5-7.1); PLATELET COUNT 234 X10e3 (140-420); RED BLOOD COUNT 4.77 X10e (3.90-5.30); RED CELL DISTRIBUTION WIDTH 17.5 % (11.0-15.5); WHITE BLOOD COUNT 16.3 X10e3 (4.0-10.5)
[2016-11-01 12:58] LABS: DIFF IND YES
[2016-11-01 13:04] LABS: POC - CKMB 1.6 ng/mL (0.0-7.9); POC - TROPONIN <0.05 ng/mL (<=0.05)
[2016-11-01 13:14] LABS: PLATELET ESTIMATE NORMAL (NORMAL)
[2016-11-01 13:15] LABS: ANISOCYTOSIS SL; HYPOCHROMIA SL
[2016-11-01 13:19] LABS: ALBUMIN SERUM 3.8 g/dL (3.5-5.0); BILIRUBIN, DIRECT 0.1 mg/dL (0.0-0.2); BILIRUBIN,INDIRECT 0.4 mg/dL (0.0-0.9); BILIRUBIN,TOTAL 0.5 mg/dL (0.2-2.0); BUN/CREATININE RATIO 14.8; CALCIUM SERUM 9.2 mg/dL (8.4-10.2); CREATININE SERUM 2.5 mg/dL (0.6-1.4); GLOM FILT RATE Estimated 18.6 mL/min (>60); POTASSIUM 3.9 mmol/L (3.5-5.1); PROTEIN TOTAL SERUM 7.8 g/dL (6.0-8.3)
[2016-11-01 14:19] LABS: URINE SOURCE CATH
[2016-11-01 14:47] LABS: URINE APPEARANCE CLEAR; URINE BILIRUBIN NEG (NEG); URINE BLOOD NEG (NEG); URINE COLOR YELLOW; URINE GLUCOSE NEG (NEG); URINE KETONE NEG (NEG); URINE LEUKOCYTE ESTERASE NEG (NEG); URINE NITRATE NEG (NEG); URINE PH 5.5 (5-8); URINE PROTEIN NEG (NEG); URINE SPECIFIC GRAVITY 1.011 (1.003-1.035); URINE UROBILINOGEN 0.2 MG/DL (NEG)
[2016-11-01 14:49] LABS: CULTURE INDICATED? NO
[2016-11-01 16:04] LABS: INFLUENZA A NEG (NEG); INFLUENZA B NEG (NEG)
[2016-11-01] MEDS ORDERED: LASIX PO (18:46)
[2016-11-01] MEDS ORDERED: NEURONTIN300 MG PO (18:46)
[2016-11-01] MEDS ORDERED: FISH OIL 1,0001 EAC4 PO (18:46)
[2016-11-01] MEDS ORDERED: ASPIRIN EC81 M1 PO (18:47)
[2016-11-01] MEDS ORDERED: PAXIL PO (18:47)
[2016-11-01] MEDS ORDERED: HEARTBURN PREVE20 MG PO (18:47)
[2016-11-01] MEDS ORDERED: VITAMIN D250000 UNIT PO (18:48)
[2016-11-01] MEDS ORDERED: PHOSLO667 M1 PO (18:48)
[2016-11-01] MEDS ORDERED: LIPITOR PO (18:49)
[2016-11-01] MEDS ORDERED: SYMBICORT INH (18:49)
[2016-11-01] MEDS ORDERED: SPIRIVA18 MCG INH (18:50)
[2016-11-02 05:24] LABS: BASOPHIL% 0.3 % (0-2.5); HEMOGLOBIN 12.3 gm/dL (12.0-16.0); LYMPHOCYTE# 1.2 X10e3 (1.0-3.5); MEAN CELL VOLUME 89.8 FL (83-96); MEAN CORPUSCULAR HEMOGLOBIN 28.4 PG (28-34); MEAN CORPUSCULAR HGB CONC 31.6 g/dL (30-36); MEAN PLATELET VOLUME 9.3 FL (6.5-11.5); MONOCYTE# 2.6 X10e3 (0-1.0); MONOCYTE% 13.7 % (3.0-12.0); NEUTROPHIL# 15.5 X10e3 (1.5-7.1); PLATELET COUNT 221 X10e3 (140-420); RED BLOOD COUNT 4.34 X10e (3.90-5.30); RED CELL DISTRIBUTION WIDTH 16.9 % (11.0-15.5); WHITE BLOOD COUNT 19.4 X10e3 (4.0-10.5)
[2016-11-02 05:26] LABS: DIFF IND NO
[2016-11-02 06:14] LABS: BUN/CREATININE RATIO 15.23; CALCIUM SERUM 8.3 mg/dL (8.4-10.2); CREATININE SERUM 2.1 mg/dL (0.6-1.4); GLOM FILT RATE Estimated 22.9 mL/min (>60); POTASSIUM 3.5 mmol/L (3.5-5.1)
[2016-11-02 13:59] LABS: INR 1.1; PARTIAL THROMBOPLASTIN TIME 31.9 SECONDS (23.5-31.3)
[2016-11-03 05:25] LABS: HEMATOCRIT 38.8 % (35.0-45.0); HEMOGLOBIN 12.4 gm/dL (12.0-16.0); MEAN CELL VOLUME 88.7 FL (83-96); MEAN CORPUSCULAR HEMOGLOBIN 28.3 PG (28-34); MEAN CORPUSCULAR HGB CONC 31.9 g/dL (30-36); MEAN PLATELET VOLUME 9.1 FL (6.5-11.5); RED BLOOD COUNT 4.38 X10e (3.90-5.30); RED CELL DISTRIBUTION WIDTH 17.1 % (11.0-15.5); WHITE BLOOD COUNT 15.3 X10e3 (4.0-10.5)
[2016-11-03 06:33] LABS: ALBUMIN SERUM 2.7 g/dL (3.5-5.0); BILIRUBIN,TOTAL 0.7 mg/dL (0.2-2.0); BUN/CREATININE RATIO 17.22; CALCIUM SERUM 8.6 mg/dL (8.4-10.2); CREATININE SERUM 1.8 mg/dL (0.6-1.4); GLOM FILT RATE Estimated 27.6 mL/min (>60); PHOSPHOROUS 3.9 mg/dL (2.5-4.6); POTASSIUM 3.4 mmol/L (3.5-5.1); PROTEIN TOTAL SERUM 6.4 g/dL (6.0-8.3)
[2016-11-04 06:10] LABS: HEMATOCRIT 40.5 % (35.0-45.0); HEMOGLOBIN 12.7 gm/dL (12.0-16.0); MEAN CELL VOLUME 89.8 FL (83-96); MEAN CORPUSCULAR HEMOGLOBIN 28.1 PG (28-34); MEAN CORPUSCULAR HGB CONC 31.3 g/dL (30-36); MEAN PLATELET VOLUME 9.2 FL (6.5-11.5); RED BLOOD COUNT 4.51 X10e (3.90-5.30); RED CELL DISTRIBUTION WIDTH 17.4 % (11.0-15.5); WHITE BLOOD COUNT 14.4 X10e3 (4.0-10.5)
[2016-11-04 06:51] LABS: BUN/CREATININE RATIO 17.33; CALCIUM SERUM 8.5 mg/dL (8.4-10.2); CREATININE SERUM 1.5 mg/dL (0.6-1.4); GLOM FILT RATE Estimated 34.5 mL/min (>60); POTASSIUM 3.3 mmol/L (3.5-5.1)
[2016-11-05 07:07] LABS: HEMOGLOBIN 13.4 gm/dL (12.0-16.0); MEAN CELL VOLUME 90.2 FL (83-96); MEAN PLATELET VOLUME 8.5 FL (6.5-11.5); RED BLOOD COUNT 4.77 X10e (3.90-5.30); RED CELL DISTRIBUTION WIDTH 17.2 % (11.0-15.5); WHITE BLOOD COUNT 12.6 X10e3 (4.0-10.5)
[2016-11-05 07:52] LABS: BUN/CREATININE RATIO 18.75; CALCIUM SERUM 8.8 mg/dL (8.4-10.2); CREATININE SERUM 1.6 mg/dL (0.6-1.4); GLOM FILT RATE Estimated 31.9 mL/min (>60); PHOSPHOROUS 3.4 mg/dL (2.5-4.6); POTASSIUM 4.5 mmol/L (3.5-5.1)
[2016-11-06 07:00] LABS: HEMATOCRIT 40.5 % (35.0-45.0); HEMOGLOBIN 12.9 gm/dL (12.0-16.0); MEAN CELL VOLUME 89.4 FL (83-96); MEAN CORPUSCULAR HEMOGLOBIN 28.5 PG (28-34); MEAN CORPUSCULAR HGB CONC 31.9 g/dL (30-36); MEAN PLATELET VOLUME 8.4 FL (6.5-11.5); RED BLOOD COUNT 4.53 X10e (3.90-5.30); RED CELL DISTRIBUTION WIDTH 17.1 % (11.0-15.5); WHITE BLOOD COUNT 13.6 X10e3 (4.0-10.5)
[2016-11-06 07:48] LABS: BUN/CREATININE RATIO 22.14; CALCIUM SERUM 8.8 mg/dL (8.4-10.2); CREATININE SERUM 1.4 mg/dL (0.6-1.4); GLOM FILT RATE Estimated 37.4 mL/min (>60); MAGNESIUM 1.9 mg/dL (1.6-3.0); POTASSIUM 3.8 mmol/L (3.5-5.1)
[2016-11-07 08:30] LABS: HEMOGLOBIN 12.9 gm/dL (12.0-16.0); MEAN CELL VOLUME 89.3 FL (83-96); MEAN CORPUSCULAR HEMOGLOBIN 28.1 PG (28-34); MEAN CORPUSCULAR HGB CONC 31.5 g/dL (30-36); MEAN PLATELET VOLUME 7.9 FL (6.5-11.5); RED BLOOD COUNT 4.59 X10e (3.90-5.30); RED CELL DISTRIBUTION WIDTH 17.1 % (11.0-15.5)
[2016-11-07 09:44] LABS: CALCIUM SERUM 9.2 mg/dL (8.4-10.2); CREATININE SERUM 1.5 mg/dL (0.6-1.4); GLOM FILT RATE Estimated 34.5 mL/min (>60); POTASSIUM 3.9 mmol/L (3.5-5.1)
[2016-11-09 06:41] LABS: BUN/CREATININE RATIO 15.62; CALCIUM SERUM 10.1 mg/dL (8.4-10.2); CREATININE SERUM 1.6 mg/dL (0.6-1.4); GLOM FILT RATE Estimated 31.9 mL/min (>60); POTASSIUM 4.2 mmol/L (3.5-5.1)
== END 2016-11-09 17:21 | DRG 314 ==
LOC: CED 13:31 → CEDOF 19:20 → C5B 11-02 00:57
PROVIDERS: Emergency Medicine; Internal Medicine Nephrology; Nurse Practitioner Family; Physician Assistant Medical
PROC: 02PY33Z Removal of Infusion Device from Great Vessel, Percutaneous Approach (ICD-10-PCS; principal; 2016-11-02)
PROC: B246ZZ4 Ultrasonography of Right and Left Heart, Transesophageal (ICD-10-PCS; 2016-11-05)
PROC: 02HV33Z Insertion of Infusion Device into Superior Vena Cava, Percutaneous Approach (ICD-10-PCS; 2016-11-09)
PROC: B548ZZA Ultrasonography of Superior Vena Cava, Guidance (ICD-10-PCS; 2016-11-09)
DX: T82.7XXA Infection and inflammatory reaction due to other cardiac and vascular devices, implants and grafts, initial encounter (principal); A41.02 Sepsis due to Methicillin resistant Staphylococcus aureus; I33.0 Acute and subacute infective endocarditis; N17.9 Acute kidney failure, unspecified; J96.10 Chronic respiratory failure, unspecified whether with hypoxia or hypercapnia; I42.8 Other cardiomyopathies; R65.20 Severe sepsis without septic shock; I13.0 Hypertensive heart and chronic kidney disease with heart failure and stage 1 through stage 4 chronic kidney disease, or unspecified chronic kidney disease; E87.1 Hypo-osmolality and hyponatremia; I50.9 Heart failure, unspecified; I07.9 Rheumatic tricuspid valve disease, unspecified; Y71.1 Therapeutic (nonsurgical) and rehabilitative cardiovascular devices associated with adverse incidents; M46.46 Discitis, unspecified, lumbar region; N18.9 Chronic kidney disease, unspecified; J44.9 Chronic obstructive pulmonary disease, unspecified; I48.0 Paroxysmal atrial fibrillation; E87.6 Hypokalemia; I25.2 Old myocardial infarction; D64.9 Anemia, unspecified; Z79.82 Long term (current) use of aspirin; Z88.5 Allergy status to narcotic agent; Z90.710 Acquired absence of both cervix and uterus; Z86.73 Personal history of transient ischemic attack (TIA), and cerebral infarction without residual deficits
CPT/HCPCS: 36415; 51701; 70450; 71010; 72148; 74176; 76937; 77001; 80048; 80053; 80076; 80202; 81003; 82553; 83605; 83735; 84100; 84132; 84484; 85025; 85027; 85610; 85652; 85730; 86140; 87040; 87070; 87077; 87186; 87804; 93005; 93306; 93312; 94640; 94664; 94760; 96365; 96375; 97110; 97116; 97163; 97167; 97530; 97535; 99285; C1751; G8978-GP; G8979-GP; G8980-GP; G8987-GO; G8988-GO; J0696; J1170; J1642; J1650; J2060; J2250; J2405; J3010; J3370

== ENCOUNTER 2017-01-06 10:07 | Inpatient (IN) | payer OTHER ==
--- NOTE | ~2017-01-06 | CO ---
Unit #: [id number] #: [id number] Patient: HEMALATHA MATTSON [id number] [address] [place], [place] [address] [id number] I MR#: [id number] NAME: HEMALATHA MATTSON ROOM: 575 Age: 71 Sex: F Admission Date: 01/06/2017 : 1945 Attending Physician: Violetta Schrader M.D. Primary Care Physician: Violetta Schrader M.D. Consultation Date: 01/06/2017 CONSULTATION REPORT REASON FOR CONSULTATION Relapse of diskitis. HISTORY OF PRESENT ILLNESS This is a very pleasant 71-year-old female, who is known to our service from previous admission back in October when she presented with MRSA bacteremia and diskitis of L2-L3 area. She was treated conservatively with IV vancomycin for 6 weeks. She finished her vancomycin on 12/15/2016 and went home. Her pain is significantly improved to the point that she was doing her household chore as well as some physically demanding chores as well. Few days later, she started to develop pain in exact same area, which got worse. Over the last 2 days, it is much more worse to the point that she had to come to the hospital. MRI has been ordered. She has no fever or chills. ID was consulted for possible recurrence or relapse of lumbar spinal osteomyelitis or diskitis. She does not have any fever or chills, lower extremity weakness, or bowel or bladder dysfunction. SYSTEMIC REVIEW Positive for severe back pain without any radiation. There are no neurologic symptoms in the lower extremities. She has no fever or chills. No abdominal pain, cough, dysuria, headache, mental status changes etc. PAST MEDICAL HISTORY COPD, previous history of open heart surgery, lacunar stroke, atrial myxoma, history of arthritis and cancer. PAST SURGICAL HISTORY Myxoma resection from the heart, total hysterectomy, hip joint injection due to pain. SOCIAL HISTORY She lives at home. No history of alcohol, drug, or tobacco abuse. ALLERGIES Morphine. MEDICATIONS Current medications, she is on pain medication at this time. I will start vancomycin. Her home medications were not available for me to review. PHYSICAL EXAMINATION GENERAL: Reveals an elderly white female, who is in distress due to pain. Unit #: [id number] #: [id number] Patient: HEMALATHA MATTSON Pain is located in the lumbar area with radiation to both flanks. VITAL SIGNS: Blood pressure is 105/68, heart rate 56, temperature 97, respirations 18. She looks slightly pale. NECK: Supple. There is no JVD or edema. LUNGS: Clear. HEART: Sounds normal. ABDOMEN: Somewhat distended, but soft and nontender. There is no rebound or guarding. Bowel sounds normal. NEUROLOGIC: Nonfocal. She is able to move all 4 extremities. There is severe localized lumbar spinal tenderness with extension in the paraspinal area. DIAGNOSTIC STUDIES LABORATORY RESULTS: White count is 15.8, hemoglobin 11.6, platelets 378, neutrophils 59, lymphocytes 10, monocytes 29. Sodium is 129, potassium 4.1, chloride 92, CO2 27, BUN is 26, creatinine 1.6. Liver function tests are normal. Urinalysis is unremarkable. IMAGING STUDIES: MRI of the spine is pending. IMPRESSION Suspected relapse of L2-L3 diskitis and/or osteomyelitis. Other possibility may include compression fracture given severity and acuteness of the pain. RECOMMENDATIONS We will wait for the MRI. I will order some inflammatory markers and start her on vancomycin. We will also obtain blood cultures and ask Dr. Banks to follow her. Dr. Banks have seen her last week, and he has ordered MRI for tomorrow. Further recommendation will follow. Dictated by... Heidi Reyes/dawna TD: 01/07/2017 03:25 JOB #: [id number] CONSULTATION REPORT Page 1 of 1 X Tj Carvalho MD CONSULTATION REPORT
--- NOTE | ~2017-01-06 | HP ---
Unit #: [id number] #: [id number] Patient: HEMALATHA MATTSON [id number] [address] [address] [id number] I MR#: [id number] NAME: HEMALATHA MATTSON ROOM: 575 Age: 71 Sex: F Admission Date: 01/06/2017 : 1945 Attending Physician: Violetta Schrader M.D. Primary Care Physician: Violetta Schrader M.D. HISTORY AND PHYSICAL CHIEF COMPLAINT Severe back pain. HISTORY OF PRESENT ILLNESS A 71-year-old female with multiple medical problems, who is very well known to me from previous discharges and also from office setting. Patient was last admitted in the hospital in October 2016, was diagnosed with MRSA bacteremia, tricuspid valve endocarditis, and L1-L2 diskitis. Patient was discharged to rehab facility to complete a course of antibiotics. She completed her course of antibiotics on December 15, 2016 and was seen in the office, was doing pretty well. Day before yesterday, she started having severe pain in the back. She does not know what she did. She was not running high fever. She did not have any chills but just the pain. She could not tolerate it anymore, came to ER and is being admitted. Does not complain of any chest pain, abdominal pain, constipation, or diarrhea. Only complaint she has is severe abdominal pain. The pain is exactly in the same area as the last time. PAST MEDICAL HISTORY 1. History of recent MRSA bacteremia in October 2016. 2. 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 3. L1-L2 diskitis and treated until December 15, 2016. 4. History of chronic kidney disease. Patient has had hemodialysis in the past. 5. History of nonischemic cardiomyopathy, ejection fraction of 15% to 20%. 6. History of chronic respiratory failure on home O2. 7. History of COPD. 8. History of disk herniation at L1-L2. 9. COPD. 10. Paroxysmal atrial fibrillation. 11. 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 12. History of left atrial myxoma/thrombus, status post resection in 2003. 13. Hypertension. 14. Nicotine abuse. PAST SURGICAL HISTORY 1. History of hysterectomy. 2. History of left myxoma resection. SOCIAL HISTORY Patient is , lives with her . Patient is a smoker. She has quit smoking. No history of alcohol abuse or drug abuse. Unit #: [id number] #: [id number] Patient: HEMALATHA MATTSON ALLERGIES Morphine, although she can tolerate Dilaudid. FAMILY HISTORY Unremarkable. HOME MEDICATIONS 1. Aspirin 81 mg daily. 2. Lipitor 80 mg at bedtime. 3. Calcium acetate two tablets three times a day. 4. Pepcid 20 mg daily. 5. Fish oil capsule twice a day. 6. Lasix 20 mg twice a day. 7. Gabapentin 300 mg three times a day. 8. Paxil 40 mg daily. 9. Hydrocodone 10/325 one tablet q.6 p.r.n. 10. Spiriva one puff twice a day. 11. Symbicort 160/4.5 two puffs twice a day. 12. Vitamin D3 at 50,000 units every month. 13. MiraLax p.r.n. basis. REVIEW OF SYSTEMS A 10-point review of systems was done. It is as per history of presenting illness. PHYSICAL EXAMINATION GENERAL: Patient is being examined in room 575, does not have any respiratory distress, although she is complaining of pain. According to her, pain has improved since she received her Dilaudid shot recently. VITAL SIGNS: Patient's blood pressure is 117/65, respiratory rate 16, pulse 66, temperature 97.9, oxygen saturation is 94%. On admission, patient's blood pressure was 144/123. HEENT: Head is normocephalic. Eye movements are normal. Pale conjunctivae. NECK: Seems to be stable. No rigidity. Trachea is in midline. CHEST: Fair air entry. Decreased at the bases. CARDIOVASCULAR: S1, S2 positive. Normal. ABDOMEN: Soft, nondistended. No tenderness. No rigidity. No rebound. BACK: There is a localized lumbar spinal tenderness present and paraspinal tenderness is present. NEUROLOGIC: Otherwise, patient is awake, alert, oriented x3. No focal neurological deficit. DIAGNOSTIC STUDIES LABORATORY: Lab workup so far shows WBC 15.8, hemoglobin 11.6, hematocrit 34.7, platelet count 378,000. Sodium 129, potassium 4.1, chloride 92, BUN 26, creatinine 1.6. Liver enzymes are stable. Urinalysis seems to be normal. C-reactive protein is elevated at 3.1. ESR is elevated at 93. Lactic acid is 0.8. TSH was done which is 0.08. IMAGING: Radiological study done was MRI of the lumbar spine which shows degenerative changes, osteomyelitis, diskitis centered at L1-L2. There is a tiny amount of fluid. No convincing spinous abscess is seen. Overall findings show some progression since the study of November 03, 2016. ASSESSMENT Patient is being admitted to telemetry unit at [facility]. [place] Unit #: [id number] #: [id number] Patient: [facility] with a diagnosis of: 1. Intractable back pain. 2. Suspected relapse of L2-L3 diskitis. 3. Acute on chronic kidney disease. 4. Hyponatremia. 5. History of nonischemic cardiomyopathy with ejection fraction of 15% to 20%. 6. History of recent tricuspid valve endocarditis. 7. Chronic respiratory failure on home O2. 8. History of paroxysmal atrial fibrillation. PLAN Plan is admit to telemetry unit. Dr. Carvalho has been consulted. Blood cultures x2 have been done. ESR and CRP are elevated. IV vancomycin 1 g is being started and pharmacy to dose. Pain management will be done with IV Dilaudid and oral pain medications. Home medications have been reviewed and adjusted. Dr. Miguel, spine surgeon, has recommended patient to be transferred to [facility] for spinal consult and care. Discussed with patient and patient's . They are reluctant for transfer, does not want to be transferred at this time. I have discussed with Dr. Carvalho about patient's plan of care. Please refer to progress note for further orders. Dictated by Heidi Archer TD: 01/07/2017 09:27 JOB #: [id number] HISTORY AND PHYSICAL Page 1 of 1 X Violetta Schrader MD X HISTORY AND PHYSICAL
--- NOTE | ~2017-01-06 | DS ---
Unit #: [id number] #: [id number] Patient: HEMALATHA MATTSON [id number] [address] [address] [id number] I MR#: [id number] NAME: HEMALATHA MATTSON ROOM: 575 Age: 71 Sex: F Admission Date: 01/06/2017 : 1945 Discharge Date: 01/12/2017 Attending Physician: Violetta Schrader M.D. Primary Care Physician: Violetta Schrader M.D. DISCHARGE SUMMARY FINAL DIAGNOSES 1. Recurrent MRSA bacteremia. 2. L2-L3 diskitis, progressive. 3. Systolic congestive heart failure with ejection fraction of 20%-25%. 4. Chronic kidney disease. 5. Chronic respiratory failure on home O2. 6. Chronic obstructive pulmonary disease. 7. History of paroxysmal atrial fibrillation. 8. History of left atrial myxoma/thrombus, status post resection in 2003. 9. Hypertension. 10. Nicotine abuse. DISCHARGE MEDICATIONS 1. IV daptomycin 550 mg q.24 h. 2. Aspirin 81 mg daily. 3. Hydrocodone 10/325 mg 1 tablet q.6 h. p.r.n. 4. Tums 500 mg t.i.d. 5. Vitamin D 50,000 units q. monthly. 6. Fish oil capsule 1000 mg b.i.d. 7. Pepcid 20 mg daily. 8. Lipitor 80 mg at nighttime. 9. Lasix 20 mg daily. 10. MiraLAX 17 g daily. 11. Paxil 40 mg daily. 12. Gabapentin 300 mg t.i.d. 13. Spiriva 1 inhaler daily. 14. Symbicort 160/4.5 two inhalers b.i.d. 15. Continue nebulizer treatments at home. DIAGNOSTIC DATA LABORATORY: C-reactive protein elevated to 3.8. ESR is elevated to 84. Sodium 135, potassium 4.2, chloride 99, BUN 24, creatinine 1.3, calcium 9.4, white blood cell count 9.3, hemoglobin 10.4, hematocrit 31.9, platelets 384. CPK 31. Blood culture on 01/06/2017 showed MRSA. Repeat blood culture on 01/08/2017 was negative. IMAGING: MRI of the lumbar spine which shows modest degenerative change, findings overall suggest osteomyelitis, diskitis centered at L1-L2. There may be a tiny amount of fluid in the 1-2 disks. No convincing spinous abscess is seen. Post contrast images in particular are motion degraded. Overall findings show some progression since the study of 10/2016. [facility] Unit #: [id number] #: [id number] Patient: HEMALATHA MATTSON Dr. Tj Carvalho from infectious disease service. Dr. Gilbert Ronquillo from renal services. HOSPITAL COURSE Ms. Hemalatha Mattson is a 71-year-old female, who is very well known to me, was admitted again with intractable and severe back pain. The patient was admitted to the telemetry unit. MRI was done, which showed progressive disease. Blood culture grew MRSA. The patient was started on IV antibiotics, vancomycin and (1) and later on this had been changed to IV daptomycin. That needs to be continued for six weeks. Most likely she has a relapse of L2-L3 diskitis. The patient also may need surgical procedure. The patient has an appointment with Dr. Banks tomorrow morning. She would like to go home. The patient had refused transfer to [facility] completely. I have discussed with the daughter and also with the multiple times. They all agreed for discharge to go home and follow up as an outpatient with spine surgeon. The patient also had [id number] renal disease. Dr. ronquillo evaluated the patient. The patient does have chronic kidney disease stage 3. The patient was taken off dialysis during hospitalization, but we are going to restart with once a day. The patient is stable. NSAIDs have been held. The patient has been instructed not to use NSAIDs over the counter. She does verbalize understanding. Hyponatremia: Improved a lot. The patient does have a history of severe cardiomyopathy with decreased ejection fraction that needs to be observed. The patient will need an appointment with Dr. Tate as an outpatient. PHYSICAL EXAMINATION VITALS: At discharge, blood pressure is 141/83, respiratory rate 20, pulse 99, temperature 98.5, oxygen saturation 100%. HEENT: Head is normocephalic. Eye movements are normal. NECK: Supple. CHEST: Decreased air entry in the bases. HERAT: S1 and S2 positive. Murmur is heard. Regular rhythm. ABDOMEN: Soft. EXTREMITIES: Negative edema. BACK: Tenderness is present in the lumbar spine and (1)___ tenderness is present. DISCHARGE INSTRUCTIONS 1. The patient is being discharged home in stable condition. 2. We will need to evaluate for home care and IV antibiotics. 3. Physical therapy and occupational therapy at home. 4. Follow up with Dr. Banks in the a.m. The patient has an appointment set up at 9:45. 5. Medications as per medication reconciliation. 6. MRI report will be given to the patient. 7. Prescription for hydrocodone is being written, to be taken q.6 h. p.r.n. Dispensed 60 tablets. Dictated by... Heidi Archer/ariel Unit #: [id number] #: [id number] Patient: HEMALATHA MATTSON Lisa TD: 01/14/2017 09:38 JOB #: [id number] DISCHARGE SUMMARY Page 1 of 1 X Violetta Schrader MD X DISCHARGE SUMMARY
--- NOTE | ~2017-01-06 | MR112 ---
[facility] A Service of [facility] RADIOLOGY TEXT RESULTS PATIENT: HEMALATHA MATTSON LOCATION: [facility] [address] : 44 UNIT #: [id number] AGE: [address]: Violetta Schrader MD SEX: F ORDER DR: [id number] [facility] [address] [facility]. [place], [place] [address] [id number] I MR#: [id number] Acc #: [id number] NAME: HEMALATHA MATTSON. : 1945 SEX: F STUDY DATE/TIME: 01/06/2017 14:34 UNIT: CEDOF ROOM: [id number] STUDY DESCRIPTION: MR Lumbar WWo Contrast Attending Physician: Aracely Anderson M.D. Ordering Physician: Violetta Schrader M.D. Primary Care Physician: Violetta Schrader M.D. MRI CENTER REPORT This report is preliminary unless electronic signature is present. EXAM Lumbar spine MRI with and without contrast DATE OF STUDY 01/06/2017 PROCEDURE Routine lumbar spine MR with and without contrast COMPARISON Prior MRI 11/04/2016 HISTORY One-half day history of low back pain with right upper leg numbness. No known injury. FINDINGS There is marked marrow edema surrounding the disc at L1-L2 throughout both vertebral bodies. There is no loss of height, and bone marrow signal is normal at other levels, with the exception of slight degenerative change of 5-1. Postcontrast images show enhancement and reveal some persistent fluid signal within the intervertebral disc. There is motion artifact degrading the study, but no drainable abscess is seen, but the findings are highly suggestive of osteomyelitis diskitis. At 1-2, there is also probably mild to moderate degenerative canal and bilateral foraminal stenosis. At 2-3, there may be borderline to mild canal stenosis and mild or mild to moderate left and mild right foraminal stenosis. [facility] A Service of [facility] RADIOLOGY TEXT RESULTS PATIENT: HEMALATHA MATTSON LOCATION: [facility] [address] [address] : 44 UNIT #: [id number] AGE: [address]: Violetta Schrader MD SEX: F ORDER DR: At 3-4, there is no canal stenosis with borderline bilateral foraminal narrowing. At 4-5, there is no canal stenosis and mild or mild to moderate bilateral foraminal narrowing. At 5-1, there is no canal stenosis and mild bilateral foraminal narrowing. IMPRESSION There is some modest degenerative change, but findings overall suggest osteomyelitis diskitis centered at L1-L2. There may be a tiny amount of fluid in the 1-2 disc. No convincing spinous abscess is seen, but the postcontrast images in particular are motion degraded. Overall, findings show some progression since the study of 11/03/2016. Results were discussed with the emergency room staff at about 4:30 p.m. Dictated by... Shahriar Tarango M.D. THIS IS AN ELECTRONICALLY VERIFIED REPORT Shahriar Tarango M.D. at 01/07/2017 4:27 PM TEV/to TD: 01/06/2017 16:53 JOB #: [id number] MRI CENTER REPORT Page 1 of 1 COPY
--- NOTE | ~2017-01-06 | XA166 ---
[facility] A Service of [facility] RADIOLOGY TEXT RESULTS PATIENT: HEMALATHA MATTSON LOCATION: [facility] 575-01 : 44 UNIT #: [id number] AGE: [address]: Violetta Schrader MD SEX: F ORDER DR: [id number] [facility] [address] [facility]. [place], [place] [address] [id number] I MR#: [id number] Acc #: [id number] NAME: HEMALATHA MATTSON. : 1945 SEX: F STUDY DATE/TIME: 01/11/2017 16:12 UNIT: [facility] ROOM: [facility] STUDY DESCRIPTION: XA PICC Line Placement WO Port Attending Physician: Violetta Schrader M.D. Ordering Physician: Violetta Schrader M.D. Primary Care Physician: Violetta Schrader M.D. MEDICAL IMAGING REPORT This report is preliminary unless electronic signature is present EXAM PICC line placement. HISTORY SUPPLIED Long-term antibiotic therapy PRE-PROCEDURE The procedure was explained to the patient and/or patient loss control representative including risks, benefits, potential complications and potential for alternative forms of treatment. Informed consent was obtained, and prior to initiating the procedure a formal timeout procedure was performed. PROCEDURE Using full standard sterile barrier technique, including caps, gowns, gloves, masks, as well as sterile skin preparation and standard sterile draping, the right arm was prepped and draped in the usual fashion, and real-time sterile ultrasound guidance was used to localize an arm vein and to confirm vessel patency. A hard copy ultrasound image was recorded. After local anesthesia with 1% Xylocaine, the basilic vein was punctured using real-time sterile ultrasound guidance, and an 0.018 guidewire was advanced into the superior vena cava, using fluoroscopic guidance. A 5-Malian dual-lumen PICC was then measured, trimmed to 41 cm and deployed with the tip positioned in the superior vena cava. The position of the line was documented with a radiographic image. The line was secured in place with an adhesive dressing and an antibiotic patch was applied. Total fluoro time was 0.2 minutes. A single fluoroscopic spot image was obtained. Exposure 2 mGy air kerma, standard. IMPRESSION 1. Successful placement of a 5 Malian dual-lumen Power PICC via the right arm under ultrasound and fluoroscopic guidance. The tip of the [facility]. [facility] A Service of [facility] RADIOLOGY TEXT RESULTS PATIENT: HEMALATHA MATTSON LOCATION: [facility] 575-01 : 43 UNIT #: [id number] AGE: [address]: Violetta Schrader MD SEX: F ORDER DR: PICC is in good position in the superior vena cava. 2. A single fluoroscopic spot image was obtained. Dictated by... Jarvis Oswald M.D. THIS IS AN ELECTRONICALLY VERIFIED REPORT Jarvis Oswald M.D. at 01/12/2017 3:38 PM Maggie TD: 01/12/2017 13:54 JOB #: [id number] MEDICAL IMAGING REPORT Page 1 of 1 COPY
--- NOTE | ~2017-01-06 | CO ---
Unit #: [id number] #: [id number] Patient: HEMALATHA MATTSON [id number] [address] [place], [place] [address] [id number] I MR#: [id number] NAME: HEMALATHA MATTSON ROOM: 575 Age: 71 Sex: F Admission Date: 01/06/2017 : 1945 Attending Physician: Violetta Schrader M.D. Primary Care Physician: Violetta Schrader M.D. Consultation Date: 01/07/2017 CONSULTATION REPORT REASON FOR CONSULTATION Renal insufficiency. Thank you very much for asking me to see this patient in consultation. HISTORY OF PRESENT ILLNESS Ms. Hemalatha Mattson is a 71-year-old female, who is well known to me. She had a history of acute renal failure back in August of this year, requiring dialysis until October of this year. Subsequently, she presented in October, off dialysis for a week. Subsequently, had MRSA bacteremia as well as diskitis and tricuspid endocarditis. She was taken off dialysis again as stated above and her creatinine has been ranging between 1.4 and 1.8 over the last 2 to 3 months. She was treated with vancomycin until December 15 according to the note. She was doing fairly well until about two days ago. She started having severe back pain and she was readmitted last night with L1-L2 diskitis by MRI. She was cultured and started on vancomycin. I was asked to see the patient again. Sodium of 129 and creatinine was 1.6. She was started on normal saline at 75 mL an hour. Her Lasix was on hold. Postvoid residual was done and was 492 and a Faustin catheter was placed. She continued with only complaint of severe back pain. She denies any fevers, chills, shortness of breath, cough, or urinary symptoms prior to that. PAST MEDICAL HISTORY History of acute renal failure as mentioned above, dialysis from September 04 to December 02 with probable chronic kidney disease stage 3 now; history of atherosclerotic coronary artery disease, status post OR with decreased EF around 15% to 20%; history of atrial fibrillation in the past; history of lacunar infarct in the past; history of atrial myxoma, status post surgery in 2013; history of MRSA bacteremia; diskitis; tricuspid endocarditis in October 2016; history of COPD; history of hypertension. ALLERGIES Include morphine. SOCIAL HISTORY Previous smoker, stopped in August. No alcohol. She is . MEDICATIONS Included aspirin, Lipitor, calcium acetate, Pepcid, Lasix, carbapenem, Paxil, hydrocodone, Spiriva, and vitamin D. REVIEW OF SYSTEMS She denies any fevers, chills, visual problems, sinus problems, cough, Unit #: [id number] #: [id number] Patient: HEMALATHA MATTSON hemoptysis, sore throat, or difficulty swallowing. No neck pain or neck stiffness. No chest pain, chest heaviness, or palpitations. No shortness of breath. No severe abdominal pain. She has severe back pain. She denies any lower extremity swelling. No recent seizures, strokes, or skin rashes. FAMILY HISTORY Noncontributory. PHYSICAL EXAMINATION GENERAL: She is alert and oriented. VITAL SIGNS: T-max 99.5, pulse 64 to 112, and blood pressure 102 to 144 over 63 to 123. HEENT: She is normocephalic and atraumatic. Pupils are equal, round, and reactive to light. Extraocular muscles are intact. Hearing appears to be normal. Mouth is clear. No erythema. No exudate. NECK: Supple. No JVD. CARDIAC: She appears to have a regular rhythm without a rub. No S3 or S4. LUNGS: Sound clear bilaterally. No wheezes, rhonchi, or rales. ABDOMEN: Bowel sounds positive. Nontender. Soft. EXTREMITIES: She has no lower extremity swelling. Her pulses are intact in lower extremities. JOINTS: No joint swelling. NEUROLOGIC: Appears to be intact motor and sensory grossly. : Faustin catheter is now in place. SKIN: No rashes. DIAGNOSTIC STUDIES LABORATORY RESULTS: Again, upon admission yesterday evening, sodium 129, BUN 26, and creatinine 1.6. This morning, sodium is 132, potassium 4.4, chloride is 97, bicarb is 27, BUN of 23, creatinine 1.4, glucose 119, calcium 10, and albumin 3.2. Lactic acid 0.8. TSH was 0.82. Cortisol is 14. Urine sodium is 46 and urine osm is 308. Hemoglobin is 10.8, white count 12,600, and platelets 259,000. UA shows specific gravity of 1.012. No protein, rbc's, or wbc's in the urinalysis. ASSESSMENT AND PLAN 1. Acute on chronic kidney disease stage 3. The patient's creatinine was 1.6, not severe, but it is better today with off diuretics and little bit of fluid as well as with the Faustin catheter. I am not sure she really had a significant. If it is a true postvoid residual or not, it is unclear. For now, since she has severe diskitis and questionable possible surgery, not ambulating well, we will keep the Faustin catheter in for now, but once she improves, somehow we will get out then and follow. Certainly, I am going to go ahead and discontinue her IV fluids with severe cardiomyopathy, but hold off diuretics and watch her closely. We will certainly try to avoid IV contrast dye, possible nonsteroidals as well as long-term PPIs if possible. We will check labs in the morning and will continue to follow. We will discontinue her PhosLo and check phosphorus in the morning. 2. Hyponatremia. The patient with low sodium is improving. Again, hold Lasix for now. We will discontinue normal saline. 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 Certainly, could be related from lung disease versus her Paxil versus other. I will leave her on Paxil for now, and just put her on p.o. fluid restriction and we will follow. 3. Diskitis. Workup and treatment underway. We started back on vancomycin certainly once levels with her level of renal insufficiency. Unit #: [id number] #: [id number] Patient: HEMALATHA MATTSON 4. Severe cardiomyopathy, decreased ejection fraction with history of atrial fibrillation, although appears to be normal sinus now. 5. Chronic obstructive pulmonary disease. 6. History of hypertension. Dictated by... Penelope Ronquillo M.D. EAN/dawna TD: 01/08/2017 07:00 JOB #: [id number] CONSULTATION REPORT Page 1 of 1 X Elisabeth Ronquillo MD CONSULTATION REPORT
[~2017-01-06 10:07] MED LIST changes: +ASPIRIN EC81 M1 PO; +FISH OIL 1,0001 EAC4 PO; +HEARTBURN PREVE20 MG PO; +LASIX PO; +LIPITOR PO; +NEURONTIN300 MG PO; +PAXIL PO; +PHOSLO667 M1 PO; +SPIRIVA18 MCG INH; +SYMBICORT INH; +VITAMIN D250000 UNIT PO
[2017-01-06 10:55] LABS: EOSINOPHIL# 0.1 X10e3 (0-0.7); EOSINOPHIL% 0.9 % (0.0-7.0); HEMATOCRIT 34.7 % (35.0-45.0); HEMOGLOBIN 11.6 gm/dL (12.0-16.0); LYMPHOCYTE# 1.6 X10e3 (1.0-3.5); LYMPHOCYTE% 10.2 % (17.0-45.0); MEAN CELL VOLUME 86.7 FL (83-96); MEAN CORPUSCULAR HEMOGLOBIN 28.9 PG (28-34); MEAN CORPUSCULAR HGB CONC 33.3 g/dL (30-36); MEAN PLATELET VOLUME 7.1 FL (6.5-11.5); MONOCYTE# 4.6 X10e3 (0-1.0); MONOCYTE% 29.3 % (3.0-12.0); NEUTROPHIL# 9.4 X10e3 (1.5-7.1); NEUTROPHIL% 59.6 % (40-75); PLATELET COUNT 378 X10e3 (140-420); WHITE BLOOD COUNT 15.8 X10e3 (4.0-10.5)
[2017-01-06 10:56] LABS: DIFF IND YES
[2017-01-06] MEDS ORDERED: ASPIRIN81 M2 PO (11:01)
[2017-01-06] MEDS ORDERED: CALCIUM ACETAT667 M2 PO (11:01)
[2017-01-06] MEDS ORDERED: LIPITOR PO (11:01)
[2017-01-06] MEDS ORDERED: FISH OIL 1,0001 EAC1 PO (11:02)
[2017-01-06] MEDS ORDERED: FAMOTIDINE PO (11:02)
[2017-01-06] MEDS ORDERED: PAXIL40 MG PO (11:02)
[2017-01-06] MEDS ORDERED: LASIX20 MG PO (11:02)
[2017-01-06] MEDS ORDERED: GABAPENTIN300 M2 PO (11:02)
[2017-01-06] MEDS ORDERED: SYMBICORT INH (11:03)
[2017-01-06] MEDS ORDERED: HYDROCODON-ACE1 EAC5 PO (11:03)
[2017-01-06] MEDS ORDERED: SPIRIVA RESPIMAT4 G1 INH (11:03)
[2017-01-06] MEDS ORDERED: MIRALAX17 GM PO (11:04)
[2017-01-06] MEDS ORDERED: PATIENT'S PHARMACY (11:04)
[2017-01-06] MEDS ORDERED: VITAMIN D350000 UNIT PO (11:04)
[2017-01-06 11:10] LABS: ANISOCYTOSIS SL; PLATELET ESTIMATE NORMAL (NORMAL)
[2017-01-06 11:19] LABS: ALBUMIN SERUM 3.7 g/dL (3.5-5.0); BILIRUBIN, DIRECT 0.1 mg/dL (0.0-0.2); BILIRUBIN,INDIRECT 0.5 mg/dL (0.0-0.9); BILIRUBIN,TOTAL 0.6 mg/dL (0.2-2.0); BUN/CREATININE RATIO 16.25; CALCIUM SERUM 10.2 mg/dL (8.4-10.2); CREATININE SERUM 1.6 mg/dL (0.6-1.4); GLOM FILT RATE Estimated 31.9 mL/min (>60); POTASSIUM 4.1 mmol/L (3.5-5.1)
[2017-01-06 12:01] LABS: URINE SOURCE CLEAN CATCH
[2017-01-06 12:07] LABS: URINE APPEARANCE CLEAR; URINE BILIRUBIN NEG (NEG); URINE BLOOD NEG (NEG); URINE COLOR YELLOW; URINE GLUCOSE NEG (NEG); URINE KETONE NEG (NEG); URINE LEUKOCYTE ESTERASE NEG (NEG); URINE NITRATE NEG (NEG); URINE PROTEIN NEG (NEG); URINE SPECIFIC GRAVITY 1.012 (1.003-1.035); URINE UROBILINOGEN 0.2 MG/DL (NEG)
[2017-01-06 12:09] LABS: CULTURE INDICATED? NO
[2017-01-06 22:24] LABS: SODIUM URINE RANDOM 46 mmol/L
[2017-01-06 23:46] LABS: OSMOLALITY,URINE 308 mOsmo/kg (250-900)
[2017-01-07 05:21] LABS: HEMATOCRIT 32.7 % (35.0-45.0); HEMOGLOBIN 10.8 gm/dL (12.0-16.0); MEAN CELL VOLUME 87.5 FL (83-96); MEAN CORPUSCULAR HEMOGLOBIN 28.7 PG (28-34); MEAN CORPUSCULAR HGB CONC 32.8 g/dL (30-36); MEAN PLATELET VOLUME 7.3 FL (6.5-11.5); RED BLOOD COUNT 3.74 X10e (3.90-5.30); RED CELL DISTRIBUTION WIDTH 16.7 % (11.0-15.5); WHITE BLOOD COUNT 12.6 X10e3 (4.0-10.5)
[2017-01-07 06:03] LABS: THYROID STIMULATING HORMONE 0.82 uIU/ml (0.34-5.60)
[2017-01-07 06:56] LABS: ALBUMIN SERUM 3.2 g/dL (3.5-5.0); BUN/CREATININE RATIO 16.42; CREATININE SERUM 1.4 mg/dL (0.6-1.4); GLOM FILT RATE Estimated 37.4 mL/min (>60); POTASSIUM 4.4 mmol/L (3.5-5.1); PROTEIN TOTAL SERUM 7.6 g/dL (6.0-8.3)
[2017-01-08 05:50] LABS: HEMATOCRIT 32.2 % (35.0-45.0); HEMOGLOBIN 10.4 gm/dL (12.0-16.0); MEAN CELL VOLUME 88.8 FL (83-96); MEAN CORPUSCULAR HEMOGLOBIN 28.6 PG (28-34); MEAN CORPUSCULAR HGB CONC 32.2 g/dL (30-36); MEAN PLATELET VOLUME 7.9 FL (6.5-11.5); RED BLOOD COUNT 3.63 X10e (3.90-5.30); RED CELL DISTRIBUTION WIDTH 16.8 % (11.0-15.5); WHITE BLOOD COUNT 9.2 X10e3 (4.0-10.5)
[2017-01-08 06:46] LABS: CALCIUM SERUM 9.2 mg/dL (8.4-10.2); CREATININE SERUM 1.5 mg/dL (0.6-1.4); GLOM FILT RATE Estimated 34.5 mL/min (>60); MAGNESIUM 1.8 mg/dL (1.6-3.0); PHOSPHOROUS 3.5 mg/dL (2.5-4.6); POTASSIUM 3.9 mmol/L (3.5-5.1)
[2017-01-09 06:14] LABS: HEMATOCRIT 31.6 % (35.0-45.0); HEMOGLOBIN 10.4 gm/dL (12.0-16.0); MEAN CELL VOLUME 87.6 FL (83-96); MEAN CORPUSCULAR HEMOGLOBIN 28.7 PG (28-34); MEAN CORPUSCULAR HGB CONC 32.8 g/dL (30-36); MEAN PLATELET VOLUME 7.4 FL (6.5-11.5); RED BLOOD COUNT 3.61 X10e (3.90-5.30); RED CELL DISTRIBUTION WIDTH 16.3 % (11.0-15.5); WHITE BLOOD COUNT 8.8 X10e3 (4.0-10.5)
[2017-01-09 07:03] LABS: BUN/CREATININE RATIO 18.33; CALCIUM SERUM 8.9 mg/dL (8.4-10.2); CREATININE SERUM 1.2 mg/dL (0.6-1.4); GLOM FILT RATE Estimated 45.1 mL/min (>60); MAGNESIUM 1.9 mg/dL (1.6-3.0); POTASSIUM 4.2 mmol/L (3.5-5.1)
[2017-01-10 06:16] LABS: BASOPHIL# 0.1 X10e3 (0-0.3); BASOPHIL% 0.8 % (0-2.5); EOSINOPHIL# 0.2 X10e3 (0-0.7); EOSINOPHIL% 2.4 % (0.0-7.0); HEMATOCRIT 31.2 % (35.0-45.0); HEMOGLOBIN 10.3 gm/dL (12.0-16.0); LYMPHOCYTE# 1.8 X10e3 (1.0-3.5); LYMPHOCYTE% 18.1 % (17.0-45.0); MEAN CELL VOLUME 87.2 FL (83-96); MEAN CORPUSCULAR HEMOGLOBIN 28.9 PG (28-34); MEAN CORPUSCULAR HGB CONC 33.1 g/dL (30-36); MEAN PLATELET VOLUME 7.7 FL (6.5-11.5); MONOCYTE# 1.1 X10e3 (0-1.0); MONOCYTE% 11.6 % (3.0-12.0); NEUTROPHIL# 6.5 X10e3 (1.5-7.1); NEUTROPHIL% 67.1 % (40-75); PLATELET COUNT 365 X10e3 (140-420); RED BLOOD COUNT 3.58 X10e (3.90-5.30); RED CELL DISTRIBUTION WIDTH 16.5 % (11.0-15.5); WHITE BLOOD COUNT 9.7 X10e3 (4.0-10.5)
[2017-01-10 06:30] LABS: DIFF IND NO
[2017-01-10 06:53] LABS: BUN/CREATININE RATIO 16.92; CALCIUM SERUM 9.6 mg/dL (8.4-10.2); CREATININE SERUM 1.3 mg/dL (0.6-1.4); POTASSIUM 3.8 mmol/L (3.5-5.1)
[2017-01-11 05:38] LABS: HEMATOCRIT 31.9 % (35.0-45.0); HEMOGLOBIN 10.4 gm/dL (12.0-16.0); MEAN CELL VOLUME 87.6 FL (83-96); MEAN CORPUSCULAR HEMOGLOBIN 28.6 PG (28-34); MEAN CORPUSCULAR HGB CONC 32.7 g/dL (30-36); MEAN PLATELET VOLUME 7.5 FL (6.5-11.5); RED BLOOD COUNT 3.64 X10e (3.90-5.30); RED CELL DISTRIBUTION WIDTH 16.7 % (11.0-15.5); WHITE BLOOD COUNT 9.3 X10e3 (4.0-10.5)
[2017-01-11 06:55] LABS: BUN/CREATININE RATIO 18.46; CALCIUM SERUM 9.4 mg/dL (8.4-10.2); CREATININE SERUM 1.3 mg/dL (0.6-1.4); POTASSIUM 4.2 mmol/L (3.5-5.1)
[2017-01-12] MEDS ORDERED: CUBICIN RF500 MG IV (14:18)
== END 2017-01-12 16:44 | disposition home health service (06) | DRG 551 ==
LOC: CED 10:07 → C5C 13:00 → CEDOF 13:00 → C2A 13:40 → CEDOF 13:40 → CED 13:40 → CEDOF 17:56 → C2A 17:56 → C5C 01-07 00:32 → C2A 01-07 00:32 → C5C 01-12 16:44
PROVIDERS: Emergency Medicine; Hospitalist; Internal Medicine; Internal Medicine Nephrology; Physician Assistant Medical
PROC: B24BYZZ Ultrasonography of Heart with Aorta using Other Contrast (ICD-10-PCS; principal; 2017-01-08)
DX: M46.46 Discitis, unspecified, lumbar region (principal); J96.21 Acute and chronic respiratory failure with hypoxia; N17.9 Acute kidney failure, unspecified; I42.8 Other cardiomyopathies; E87.1 Hypo-osmolality and hyponatremia; I13.0 Hypertensive heart and chronic kidney disease with heart failure and stage 1 through stage 4 chronic kidney disease, or unspecified chronic kidney disease; I50.22 Chronic systolic (congestive) heart failure; Z99.81 Dependence on supplemental oxygen; J44.9 Chronic obstructive pulmonary disease, unspecified; Z90.710 Acquired absence of both cervix and uterus; Z79.82 Long term (current) use of aspirin; I48.0 Paroxysmal atrial fibrillation; B95.62 Methicillin resistant Staphylococcus aureus infection as the cause of diseases classified elsewhere; N18.3 Chronic kidney disease, stage 3 (moderate)
CPT/HCPCS: 36415; 72158; 76937; 77001; 80048; 80053; 80076; 80202; 81003; 82308; 82533; 82550; 83605; 83690; 83735; 83935; 84100; 84300; 84443; 85025; 85027; 85652; 86140; 87040; 87077; 87186; 93306; 94640; 94664; 94760; 96374; 97110; 97116; 97162; 97165; 97530; 99285; A9577; C1751; G8978-GP; G8979-GP; G8987-GO; G8988-GO; J0878; J1170; J1650; J2405; J3370

== ENCOUNTER 2017-02-04 12:47 | Inpatient (IN) | payer OTHER ==
[~2017-02-04] VITALS: Ht 172.7 cm; Wt 68.5 kg
--- NOTE | ~2017-02-04 | OR ---
Unit #: [id number] #: [id number] Patient: HEMALATHA MATTSON [id number] [address] [address] [id number] I MR#: [id number] NAME: HEMALATHA MATTSON. ROOM: 569 Date of Procedure: 02/08/2017 Admission Date: 02/04/2017 Surgeon: Olvin Landeros M.D. : 1945 Attending Physician: Violetta Schrader M.D. Primary Care Physician: Violetta Schrader M.D. PROCEDURE OPERATIVE NOTE PROCEDURE Diagnostic and therapeutic bronchoscopy with bronchoalveolar lavage. PREMEDICATION MAC sedation. DESCRIPTION OF THE PROCEDURE Informed consent was obtained from the patient after explaining the benefits and risks of this procedure. The patient was prepped and positioned in a proper way. Then, she was premedicated with propofol with the assistance of anesthesia. The bronchoscope was advanced through the oral cavity. At the level of his vocal cords, 2% lidocaine was instilled, and then the bronchoscope was advanced through the vocal cords into the trachea. Then, at the level of the kirsten 1% lidocaine was instilled. Then, the bronchoscope was advanced into the right main bronchus, and the right upper lobe, right lower lobe and right middle lobe were examined, which appeared normal except for large thick brownish colored mucus plug obstructing the right lower lobe and partially the right middle lobe. The plug was aspirated and removed out with normal saline flushes. Then the bronchoscope was retracted and then readvanced into the left main bronchus, and the left upper lobe, lingula and left lower lobe were examined. They appeared normal with no endobronchial masses or secretions. The bronchoscope was wedged at the level of the left lower lobe, and washing was obtained, which will be sent for microbiology and cytology. The bronchoscope was retracted out then. The patient tolerated her procedure well with no immediate complications. Dictated by... Olvin Landeros M.D. EA/pilar TD: 02/08/2017 16:25 JOB #: [id number] Unit #: [id number] #: [id number] Patient: HEMALATHA MATTSON PROCEDURE OPERATIVE NOTE Page 1 of 1 X OLVIN PAPPAS MD PROCEDURE OPERATIVE NOTE
--- NOTE | ~2017-02-04 | CO ---
Unit #: [id number] #: [id number] Patient: HEMALATHA MATTSON [id number] [address] [place], [place] [address] [id number] I MR#: [id number] NAME: HEMALATHA MATTSON ROOM: 569 Age: 71 Sex: F Admission Date: 02/04/2017 : 1945 Attending Physician: Violetta Schrader M.D. Primary Care Physician: Violetta Schrader M.D. Consultation Date: 02/06/2017 CONSULTATION REPORT REASON FOR CONSULTATION Renal insufficiency. HISTORY OF PRESENT ILLNESS Ms. Hemalatha Mattson is a 71-year-old female, who I have seen multiple times, when she had acute renal failure in August requiring dialysis up until 10/2016, where renal function did improve, she was taken off dialysis, tunneled catheter was removed, but she did have complications, which included MRSA bacteremia, diskitis, as well as tricuspid endocarditis. Her baseline creatinine is leveled off in the 1.4 to 1.8 range. She was back in the hospital on 01/06 through 01/12 for diskitis and was discharged home, and she presented here the other day after falling at home, subsequently was admitted for hospital-acquired pneumonia. She was started on Zyvox, Zosyn, and tobramycin, although the tobramycin was discontinued yesterday. Of course, we were asked to see the patient secondary to her renal function. The patient was noted upon presentation, creatinine of 1.8, it was 1.7 to 1.8 early January and was realistically 1.2 to 1.6 during her December admission. She currently denies any chest pain or shortness of breath. She denies any nausea or vomiting. Currently, no abdominal pain. She still has some pain in her back from her diskitis. PAST MEDICAL HISTORY History of acute renal failure, now probably chronic kidney disease, late stage 3, early stage 4; history of atherosclerotic coronary artery disease, status post VA with decreased EF; history of atrial fibrillation; history of lacunar infarct; history of atrial myxoma, status post surgery in 2013; history of the MRSA bacteremia; endocarditis; diskitis; history of COPD; and history of hypertension. ALLERGIES Include morphine. SOCIAL HISTORY Previous smoker, none since August. No alcohol. FAMILY HISTORY Noncontributory. CURRENT MEDICATIONS Include; several inhalers, she is on Tylenol p.r.n. for pain, Zosyn q.8h, Pepcid 20 mg a day, [place] with vitamin D t.i.d., Neurontin 300 mg t.i.d., atorvastatin 80 mg at night, Lovenox, Zyvox, MiraLAX, Lasix 40 mg p.o. b.i.d., Paxil 40 mg a day, and aspirin 81 mg a day. She was on tobramycin Unit #: [id number] #: [id number] Patient: HEMALATHA MATTSON that was discontinued. PHYSICAL EXAMINATION GENERAL: She is alert. VITAL SIGNS: Temperature is 98.9, pulse 78 to 97, and blood pressure 99 to 114 over 50s to 60s. HEENT: She is normocephalic and atraumatic. Pupils are equal, round, and reactive to light. Extraocular muscles are intact. Hearing appears to be normal. Mouth is clear. No erythema. No exudate. NECK: Supple. No JVD. LUNGS: Fairly clear bilaterally. No wheezes, rhonchi, or rales. CARDIAC: She appears to have irregular rhythm without a rub. No S3 or S4. ABDOMEN: Bowel sounds are positive. Nontender. Soft. EXTREMITIES: She has no lower extremity swelling. Pulses are intact in lower extremities. JOINTS: No joint pain or joint swelling. SKIN: No rashes. NEUROLOGIC: Appears to be intact motor and sensory grossly. : Deferred. DIAGNOSTIC STUDIES LABORATORY RESULTS: Sodium 135, potassium 4.3, chloride 93, bicarb is 33, BUN and creatinine of 24 and 1.8, glucose 99, and calcium is 9.9. Hemoglobin is 9.5, white count 19,000, and platelets 340, 000. UA shows specific gravity of 1.05, no protein, no rbc's, she had 5 to 10 wbc's and 1+ bacteria. She is growing Klebsiella out of her urine, not sensitive to ampicillin, but is sensitive to Rocephin. IMAGING STUDIES: Chest x-ray upon admission showed a left lower lobe pneumonia. CT of the head was negative after fall. Echo here showed an EF around 20% to 25%, moderate mitral regurgitation. No pericardial effusion. ASSESSMENT AND PLAN 1. Chronic kidney disease, late stage 3 to early stage 4, certainly creatinine is a little more elevated when she was in December, but overall I think it is really relatively stable depending on her volume status etc. I really do not think we should do any major further workup at this point in time, we will continue to watch, would stay away from nonsteroidals, MAGALLON-2 inhibitors, long-term PPIs, and try to stay away from vancomycin and aminoglycosides as well as IV contrast if possible. We will continue to follow. 2. Urinary tract infection, the patient with Klebsiella, Infectious Disease on the case, I am not sure Zosyn or Zyvox is treating it , I am going to make a note of that and defer it to ID. 3. History of methicillin-resistant Staphylococcus aureus bacteremia/tunneled-catheter infection/diskitis/endocarditis. Blood cultures here are negative x2. 4. History of cardiomyopathy, decreased EF, atrial fibrillation per Cardiology. Appears to be fairly euvolemic at this time. 5. Anemia, hemoglobin is 9.6, it has been right around this range since admission. We will go ahead and check iron stores and we will follow. Dictated by... Penelope Ronquillo M.D. EAN/dawna Unit #: [id number] #: [id number] Patient: HEMALATHA MATTSON TD: 02/07/2017 04:24 JOB #: [id number] CONSULTATION REPORT Page 1 of 1 X Elisabeth Ronquillo MD X CONSULTATION REPORT
--- NOTE | ~2017-02-04 | DS ---
Unit #: [id number] #: [id number] Patient: HEMALATHA MATTSON [id number] [address] [address] [id number] I MR#: [id number] NAME: HEMALATHA MATTSON ROOM: 569 Age: 71 Sex: F Admission Date: 02/04/2017 : 1945 Discharge Date: 02/10/2017 Attending Physician: Violetta Schrader M.D. Primary Care Physician: Violetta Schrader M.D. DISCHARGE SUMMARY FINAL DIAGNOSES 1. Acute hypoxic respiratory failure. 2. Acute exacerbation of chronic obstructive pulmonary disease. 3. Pneumonia. 4. History of methicillin resistant Staphylococcus aureus sepsis. 5. Diskitis, L2-L3. 6. Urinary tract infection. 7. Atrial fibrillation with rapid ventricular rate, now normal sinus rhythm. 8. Hypertension. 9. Congestive heart failure with systolic ejection fraction of 20% to 25%. 10. History of acute on chronic kidney disease, which is improved. 11. History of chronic kidney disease, stage 3. 12. History of myxoma in the past. 13. Tobacco abuse. 14. Anemia. DISCHARGE MEDICATIONS 1. Eliquis 2.5 mg p.o. b.i.d. 2. Amiodarone 200 mg 1 tablet b.i.d. until 02/13/17 and then 1 tab every day. 3. Mini-neb treatment, continue home dose. 4. Symbicort, continue home dose. 5. Tylenol 650 q.6 p.r.n. 6. Spiriva 18 mcg inhaler every day. 7. Neurontin 300 mg 3 times a day. 8. Paxil 40 mg every day. 9. Fluconazole 100 mg every day until 02/11/17. 10. Atorvastatin 80 mg q.h.s. 11. MiraLAX 17 g every day p.r.n. 12. Lasix 40 mg every day. 13. Humibid LA 600 mg twice a day. 14. Pepcid 20 mg every day. 15. Aspirin 81 mg every day. 16. Duragesic patch 25 mcg q.72 hours. 17. Ultram 50 mg 3 times a day p.r.n. 18. Calcium acetate 2 tablets p.o. t.i.d. 19. Vitamin D 50,000 units every month. 20. IV Teflaro 300 mg q.12 for 5 weeks. CONSULTATIONS DURING HOSPITALIZATION 1. Dr. Tate from cardiology services. 2. Dr. Gilbert Ronquillo from renal services. Unit #: [id number] #: [id number] Patient: HEMALATHA MATTSON 3. . Perfecto Cheung from pulmonary services. PROCEDURES PERFORMED DURING HOSPITALIZATION Bronchoscopy, which was done on 02/08/[address] Floyd Landeros, and large thick brownish-colored mucous plugs, which were obstructing the right lower lobe and partially the right middle lobe, were suctioned out. DIAGNOSTIC STUDIES LAB WORKUP ON DISCHARGE: Blood cultures, which were done on 02/12/17, have no growth. BMP on discharge shows sodium 132, potassium 4.8, chloride 92, BUN 39, creatinine 2, calcium 9.1. WBC is 13.2, hemoglobin 9.4, hematocrit 28.6, and platelet count of 336. Lactic acid 1.6 on February 08. Urine culture is positive for Klebsiella. Patient is being treated with antibiotics. SIGNIFICANT IMAGING STUDIES DONE: CT scan of the head without contrast on admission: No hemorrhage. No acute intracranial abnormalities. CT scan of the chest without contrast was done, which showed multifocal airspace disease most prominent within the anterior aspect of the left lower lobe compatible with multifocal pneumonia. HOSPITAL COURSE Ms. Hemalatha Mattson is 71-year-old female who is very well known to us from multiple admissions. Patient's last discharge from hospital was on 02/11/17. She came back and was admitted by my colleague, Dr. Murphy, with history of fall. She was feeding squirrels at her house and she fell down. She did not have any syncopal episode. She just complained of increasing shortness of breath and dyspnea and yellowish colored sputum. Patient was diagnosed with acute respiratory failure and pneumonia. Patient was admitted to telemetry unit. Dr. Landeros was consulted and patient was treated with broad-spectrum IV antibiotics. Infectious disease was involved in patient's care and patient's antibiotic is being changed to Teflaro 300 mg q.12 hours for 5 weeks. Please note patient received IV Zyvox several times during hospitalization. Therapeutic Recreation Specialist was consulted and patient's medications have been changed. Patient is on anticoagulation therapy with Eliquis at this time. Amiodarone has been started. Patient's NIKKIE score is high so she will need long-term anticoagulation therapy. EXAMINATION ON DISCHARGE VITAL SIGNS: Blood pressure 111/65, respiratory rate 20, pulse is 74, and temperature 97.7. CHEST: Wheezing is present bilateral. CVS: S1 and S2 positive. Regular rhythm. ABDOMEN: Soft. EXTREMITIES: Edema is present. DISCHARGE INSTRUCTIONS 1. Patient is being discharged home as she really wants to go home today. 2. VNA to follow the patient at home. 3. IV Teflaro 300 mg q.12. VNA to help with the IV antibiotics. 4. Patient does have a PICC line on the right arm. 5. Follow up with primary care provider in one week. 6. CBC, BMP, ESR, CRP weekly. 7. Follow up with Dr. Ronquillo in four weeks. 8. Follow up with Dr. Tate on 03/29/17 at 11:45. Unit #: [id number] #: [id number] Patient: HEMALATHA MATTSON 9. Prescription has been written. Dictated by... Heidi Archer/catracho TD: 02/12/2017 11:07 JOB #: [id number] DISCHARGE SUMMARY Page 1 of 1 X Violetta Schrader MD X DISCHARGE SUMMARY
--- NOTE | ~2017-02-04 | HP ---
Unit #: [id number] #: [id number] Patient: HEMALATHA MATTSON [id number] [address] [place], [place] [address] [id number] I MR#: [id number] NAME: HEMALATHA MATTSON ROOM: 569 Age: 71 Sex: F Admission Date: 02/04/2017 : 1945 Attending Physician: Violetta Schrader M.D. Primary Care Physician: Violetta Schrader M.D. HISTORY AND PHYSICAL ADMISSION DIAGNOSES 1. Pneumonia, which is healthcare-acquired pneumonia since she was recently discharged from the hospital in December of this year. 2. Acute exacerbation of chronic obstructive pulmonary disease. 3. Status post fall. 4. History of methicillin resistant Staphylococcus aureus bacteremia. 5. History of bacterial endocarditis with the tricuspid vegetation. 6. Nonischemic cardiomyopathy. 7. History of coronary artery disease. 8. History of myxoma. 9. History of paroxysmal atrial fibrillation. 10. Hypertension. 11. Tobacco use. 12. Anemia of chronic disease. HISTORY OF PRESENT ILLNESS Ms. Hemalatha Mattson is a 72-year-old, female patient of Dr. Schrader'carla who comes to the emergency room with the complaints of sustaining a fall while feeding the squirrels at her house. She denies any loss of consciousness. Denies any syncope, presyncope, preceding chest pain, headache, dizziness, or lightheadedness. She complains of increasing shortness of air and dyspnea along with the yellowish sputum productive cough for last several days. She does have a history of COPD and, unfortunately, she continues to be an active smoker. Otherwise, she denies any other symptoms. Denies any nausea, vomiting, abdominal pain, diarrhea, or dysuria. So, 12-point review of systems on this patient is basically negative, except as above. PAST MEDICAL HISTORY Significant for history of angiomyxoma, lacunar strokes, nonischemic cardiomyopathy, history of spinal cancer, and also history of paroxysmal AFib, PSVT, hypertension, rheumatic fever, COPD, recent MRSA bacteremia, and history of L spine diskitis. PAST SURGICAL HISTORY Significant for hysterectomy and open heart surgery for myxoma resection. HOME MEDICATIONS It looks like in December she was discharged on: 1. IV daptomycin. 2. Aspirin. 3. Hydrocodone. 4. Tums. Unit #: [id number] #: [id number] Patient: HEMALATHA MATTSON 5. Vitamin D. 6. Fish oil. 7. Pepcid. 8. Lipitor. 9. Lasix. 10. MiraLAX. 11. Paxil. 12. Gabapentin. 13. Spiriva. 14. Symbicort. 15. DuoNeb. ALLERGIES Allergic to morphine. SOCIAL HISTORY She continues to smoke. Denies any illicit drugs or alcohol abuse. FAMILY HISTORY Unremarkable. PHYSICAL EXAMINATION GENERAL APPEARANCE: Patient is a 71-year-old female in no acute distress. VITAL SIGNS: BP 114/64, heart rate 78, respirations 18, and temperature 98. HEENT: Head is atraumatic. Pupils are equal, round, and reactive to light and accommodation. Extraocular muscles intact. Oropharynx clear. NECK: Supple. No masses. No JVD. No bruits. CHEST: Diminished bilaterally with bilateral rhonchi and mild wheezing. CARDIOVASCULAR: S1 and S2. No murmurs. ABDOMEN: Soft, nontender, and nondistended. LOWER EXTREMITIES: Without any cyanosis, clubbing, or edema. NEUROLOGIC: Patient grossly intact. No focal deficits. DIAGNOSTIC STUDIES IMAGING: Chest x-ray shows pneumonia. CT of the head was done, which was unremarkable. LABORATORY: H and H at 8.9 and 27.4 and white count at 19,000. BUN and creatinine 28 and 1.8. Blood cultures pending. ASSESSMENT AND PLAN 1. Pneumonia/healthcare-acquired. Continue Zosyn and Zyvox. Per ID, will bet pulmonary on board. 2. Acute exacerbation of COPD. We will start her on some DuoNeb and Pulmicort inhalers. Defer IV steroids to pulmonology. 3. Status post fall, status post negative CT of the head. Will need PT/OT evaluation before the discharge. 4. History of methicillin resistant Staphylococcus aureus bacteremia. Continue Zyvox per ID. 5. History of subacute bacterial endocarditis along with the myxoma, status post open heart surgery. 6. History of nonischemic cardiomyopathy along with the coronary artery disease and paroxysmal atrial fibrillation. Will get the cardiology on board. Looks like Dr. Vargas has seen the patient before. Patient was not on any active anticoagulation and I do not see any reports of GI bleed on this patient. Unit #: [id number] #: [id number] Patient: HEMALATHA MATTSON 7. Hypertension, stable. 8. Tobacco used. Counseled on importance of quitting. 9. Anemia of chronic disease. Monitor H and H. 10. GI and DVT prophylaxes. Continue Pepcid and Lovenox. Dictated by Heidi Stauffer/catracho TD: 02/06/2017 06:18 JOB #: [id number] HISTORY AND PHYSICAL Page 1 of 1 X Greg Murphy MD HISTORY AND PHYSICAL
--- NOTE | ~2017-02-04 | EKG ---
PATIENT: HEMALATHA MATTSON UNIT #: [id number] Ventricular Rate: 93 BPM Atrial Rate: 93 BPM P-R Interval: 166 ms QRS Duration: 88 ms Q-T Interval: 364 ms QTC Calculation(Bezet): 452 ms P [place]: -17 degrees Calculated R [place]: 81 degrees Calculated T [place]: 74 degrees Diagnosis Line: Unusual P axis, possible ectopic atrial rhythm Diagnosis Line: Borderline ECG Diagnosis Line: When compared with ECG of 04-FEB-2017 14:46, Diagnosis Line: No significant change was found Diagnosis Line: Confirmed by DAVID CRAWFORD MD ([id number]) on Diagnosis Line: 02/08/2017 8:19:03 PM INTERPRETING MD: ANNA
--- NOTE | ~2017-02-04 | CO ---
Unit #: [id number] #: [id number] Patient: HEMALATHA MATTSON [id number] [address] [address] [id number] I MR#: [id number] NAME: HEMALATHA MATTSON. ROOM: 569 Age: 71 Sex: F Admission Date: 02/04/2017 : 1945 Attending Physician: Violetta Schrader M.D. Primary Care Physician: Violetta Schrader M.D. Consultation Date: 02/06/2017 CONSULTATION REPORT REASON FOR CONSULTATION Pneumonia. CHIEF COMPLAINT Shortness of breath. 72-year-old female with a past medical history of COPD and history of renal failure, congestive heart failure, presents after a fall while she was feeding the squirrels at her house. Now, chest x-ray consistent with pneumonia. I am seeing her at bedside. She denies any nausea, vomiting, diarrhea. Complaining of pain. PAST MEDICAL HISTORY 1. CVA. 2. Nonischemic cardiomyopathy. 3. COPD. 4. Extensive smoker in the past. 5. Rheumatic fever. 6. Hypertension. 7. Likely obstructive sleep apnea. SURGICAL HISTORY Open heart surgery for myxoma. HOME MEDICATIONS 1. Daptomycin. 2. Aspirin. 3. Hydrocodone. 4. Tums. 5. Vitamin D. 6. Fish oil. 7. Pepcid. 8. Lipitor. 9. Lasix. 10. MiraLAX. 11. Paxil. 12. Gabapentin. 13. Spiriva. 14. Symbicort. 15. Duo-Nebs. ALLERGIES Allergic to morphine. Unit #: [id number] #: [id number] Patient: HEMALATHA MATTSON SOCIAL HISTORY Continues to smoke. No drug abuse. PHYSICAL EXAMINATION VITAL SIGNS: Temperature 98, pulse 87, respirations 12, blood pressure 130/70. NEUROLOGICAL: Awake, alert, oriented. No neuro deficit. HEENT: PERRLA. NECK: Supple. No JVD. CHEST: Bilateral air entry, bilateral mild rhonchi. GI: Nontender, soft. Bowel sounds positive. EXTREMITIES: No edema. SKIN: No rashes, no ulcers. LYMPHATIC: No lymphadenopathy. DIAGNOSTIC STUDIES Labs and imaging has been reviewed. ASSESSMENT AND PLAN 1. Pneumonia. 2. COPD with exacerbation, currently stable. 3. History of MRSA bacteremia, sepsis. 4. Nonischemic cardiomyopathy. 5. Hypertension. Plan is to get a noncontrast CT of the chest. ID is managing antibiotics. Continue oxygen and bronchodilator. Will make further recommendation based on the CT chest. Thank you very much for this consultation. Dictated by... Heidi Macario/kayla TD: 02/08/2017 06:54 JOB #: [id number] CONSULTATION REPORT Page 1 of 1 X Perfecto Cheung MD X CONSULTATION REPORT
--- NOTE | ~2017-02-04 | CR72 ---
[facility] A Service of [facility] & [facility] RADIOLOGY TEXT RESULTS PATIENT: HEMALATHA MATTSON LOCATION: [facility] 569-01 : [birth year] UNIT #: [id number] AGE: [address]: Violetta Schrader MD SEX: F ORDER DR: [id number] [facility] [address] [place], [place] [address] [id number] I MR#: [id number] Acc #: [id number] NAME: HEMALATHA MATTSON : 1945 SEX: F STUDY DATE/TIME: 02/04/2017 14:42 UNIT: [facility] ROOM: [facility] STUDY DESCRIPTION: CR Chest Single View Portable Attending Physician: Violetta Schrader M.D. Ordering Physician: Patel Ayala M.D. Primary Care Physician: Violetta Schrader M.D. MEDICAL IMAGING REPORT This report is preliminary unless electronic signature is present EXAM Portable chest INDICATIONS Syncopal episode of shortness of breath today. COMPARISON 11/01/2016 FINDINGS There is mild background interstitial prominence. There is a new airspace infiltrate in the left lung base suspicious for pneumonia. Follow up to clearing is recommended. Heart size stable. There is a PICC line in the right upper extremity with tip in the region of the upper SVC. IMPRESSION There is a new infiltrate in the left lung base suspicious for pneumonia. Follow up to clearing is recommended. There is a left PICC line with tip in the region of the upper SVC Dictated by... Ang Tim M.D. THIS IS AN ELECTRONICALLY VERIFIED REPORT Ang Tim M.D. at 02/05/2017 3:52 PM LAN/sofie TD: 02/04/2017 22:13 JOB #: [id number] MEDICAL IMAGING REPORT Page 1 of 1 COPY
--- NOTE | ~2017-02-04 | EKG ---
PATIENT: HEMALATHA MATTSON UNIT #: [id number] Ventricular Rate: 84 BPM Atrial Rate: 84 BPM P-R Interval: 186 ms QRS Duration: 86 ms Q-T Interval: 366 ms QTC Calculation(Bezet): 432 ms P [place]: 252 degrees Calculated R [place]: 89 degrees Calculated T [place]: 86 degrees Diagnosis Line: Unusual P axis, possible ectopic atrial rhythm Diagnosis Line: Borderline ECG Diagnosis Line: Diagnosis Line: Confirmed by KIAH HEIN MD ([id number]) on 02/04/2017 Diagnosis Line: 8:00:07 PM INTERPRETING MD: MELVINA MACE
--- NOTE | ~2017-02-04 | CT57 ---
[facility] A Service of [facility] RADIOLOGY TEXT RESULTS PATIENT: HEMALATHA MATTSON LOCATION: [facility] 569-01 : 44 UNIT #: [id number] AGE: [address]: Violetta Schrader MD SEX: F ORDER DR: [id number] [facility] [address] [place], [place] [address] [id number] I MR#: [id number] Acc #: [id number] NAME: HEMALATHA MATTSON. : 1945 SEX: F STUDY DATE/TIME: 02/06/2017 18:43 UNIT: [facility] ROOM: [facility] STUDY DESCRIPTION: CT Chest Wo Cont Attending Physician: Violetta Schrader M.D. Ordering Physician: Perfecto Cheung M.D. Primary Care Physician: Violetta Schrader M.D. MEDICAL IMAGING REPORT This report is preliminary unless electronic signature is present EXAM CT chest without contrast HISTORY Shortness of air cough times [address] chest 08/17/[address] exam was performed with one or more of the following radiation dose reduction techniques: automatic control, adjustment of mA and/or kV according to patient size, and iterative reconstruction. FINDINGS Axial images performed through the chest without contrast. Multiplanar reconstructions. Extensive airspace disease left upper lobe anteriorly with dense consolidation air bronchograms most likely representing acute infectious pneumonia. Small focus of airspace disease seen in the medial aspect the right middle lobe and also within the posterior aspect of the left upper lobe and within the lateral aspect of the right middle lobe. This may represent additional foci of infiltrate. Findings again most compatible acute infectious pneumonia. This appears superimposed on background emphysema. No effusions. Trachea and bronchi unremarkable. Heart aorta and pulmonary vessels unremarkable except for aortic atherosclerotic changes. Left hilar calcifications compatible with prior granulomatous disease. Upper abdomen unremarkable. Osseous structures demonstrate degenerative changes mid thoracic spine. At L1-2 there is progressive destruction of the L1-2 disc space with reactive sclerosis within the adjacent vertebral bodies. Findings raise a concern for [facility] A Service of [facility] RADIOLOGY TEXT RESULTS PATIENT: HEMALATHA MATTSON LOCATION: [facility] 569-01 : 44 UNIT #: [id number] AGE: [address]: Violetta Schrader MD SEX: F ORDER DR: diskitis. This represents a new finding when compared to the July 2016 study. Mild compromise of the spinal canal at this level. IMPRESSION 1. Multifocal airspace disease most prominent within the anterior aspect of the left upper lobe compatible with multifocal pneumonia. Small area of dense consolidation seen in the left upper lobe. This appears superimposed on background emphysema. 2. Progressive destruction of the L1-2 disc space with sclerosis and deformity of the endplates could represent underlying diskitis. This has shown progression from the patient's CT of July 2016. Dictated by... Km Tim M.D. THIS IS AN ELECTRONICALLY VERIFIED REPORT Km Tim M.D. at 02/07/2017 1:03 PM RUKHSANA/sofie TD: 02/07/2017 04:08 JOB #: [id number] MEDICAL IMAGING REPORT Page 1 of 1 COPY
--- NOTE | ~2017-02-04 | CT71 ---
[facility] A Service of [facility] RADIOLOGY TEXT RESULTS PATIENT: HEMALATHA MATTSON LOCATION: [facility] [id number] : 44 UNIT #: [id number] AGE: [address]: Violetta Schrader MD SEX: F ORDER DR: [id number] [facility] [address]. [place], [place] [address] [id number] I MR#: [id number] Acc #: [id number] NAME: HEMALATHA MATTSON. : 1945 SEX: F STUDY DATE/TIME: 02/04/2017 15:54 UNIT: [facility] ROOM: [facility] STUDY DESCRIPTION: CT Head Wo Contrast Attending Physician: Violetta Schrader M.D. Ordering Physician: Patel Ayala M.D. Primary Care Physician: Violetta Schrader M.D. MEDICAL IMAGING REPORT This report is preliminary unless electronic signature is present EXAM CT head without contrast, 02/04/2017. HISTORY 71-year-old female with head pain, status post fall today. COMPARISON STUDIES CT head, 11/01/2016. TECHNIQUE Routine unenhanced axial images performed through the brain. This CT exam was performed with one or more of the following radiation dose reduction techniques: automatic exposure control, adjustment of mA and/or kV according to patient size, and iterative reconstruction. FINDINGS No hemorrhage, acute infarction, mass lesion, or abnormal extraaxial fluid collection. No midline shift or focal mass effect. Ventricular system normal in size and configuration. Mild generalized atrophy. Ujwc-ij-eejdtwfi chronic small vessel disease is unchanged. Remote infarcts in the bilateral cerebellar hemispheres are stable. No acute bony abnormality. Visualized paranasal sinuses and mastoid air cells are clear. IMPRESSION 1. No acute intracranial abnormality. 2. Stable age-related atrophy and moderate chronic small vessel disease. Stable remote infarcts in the bilateral cerebellar hemispheres. Dictated by... Phil Powell M.D. [facility] A Service [facility] RADIOLOGY TEXT RESULTS PATIENT: HEMALATHA MATTSON LOCATION: [facility] : 44 UNIT #: [id number] AGE: [address]: Violetta Schrader MD SEX: F ORDER DR: THIS IS AN ELECTRONICALLY VERIFIED REPORT Phil Powell M.D. at 02/05/2017 9:56 AM Avni TD: 02/04/2017 23:08 JOB #: [id number] MEDICAL IMAGING REPORT Page 1 of 1 COPY
--- NOTE | ~2017-02-04 | CO ---
Unit #: [id number] #: [id number] Patient: HEMALATHA MATTSON [id number] [address] [place], [place] [address] [id number] I MR#: [id number] NAME: HEMALATAH MATTSON ROOM: 569 Age: 71 Sex: F Admission Date: 02/04/2017 : 1945 Attending Physician: Violetta Schrader M.D. Primary Care Physician: Violetta Schrader M.D. CONSULTATION REPORT REASON FOR CONSULT History of CAD, nonischemic cardiomyopathy, and paroxysmal atrial fibrillation. HISTORY OF PRESENT ILLNESS This is a 71-year-old female, who is well known to Dr. Tate. She has a history of nonischemic cardiomyopathy with ejection fraction of 20% to 25% per last echocardiogram in October of 2016. 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 The patient states she was at home in her typical state of health, when yesterday she was walking in her backyard. Her nephew was with her. She fell suddenly, denies tripping, is not really sure how or why she fell. He helped her back up to go in the house and then asked if she wanted to go to the hospital which she did. The patient denied any chest pain, palpitations, loss of consciousness, or dizziness prior to the fall. She does state she has not been feeling well for the last several days, increasing fatigue, and generalized decreased appetite as well as some mild shortness of breath. On arrival to the emergency room, the patient's blood pressure was noted to be 91/60, oxygen saturation 92% on 2 L nasal cannula, pulse of 97. She is also complaining of back pain. Chest x-ray was performed, which showing consistent with pneumonia. The patient also does have an elevated white count of 19,000. It is also noted to have 4+ bacteria in her urine. Urine culture shows Klebsiella pneumoniae. Cardiac EKG shows a normal sinus rhythm, rate of 84 beats per minute. QTc interval 432 milliseconds. No acute ischemic changes noted. At present, she is resting in bed. She denies any complaints of chest pain, shortness of breath, palpitations. Her primary complaint is that of back pain as well as fatigue. Current blood pressure is stable. Cardiac rhythm remains normal sinus rhythm, rate of 88 beats per minute. We were asked to see for evaluation of the above. PAST MEDICAL HISTORY 1. Ischemic cardiomyopathy. Transesophageal echo performed on 11/05/2016 shows an LVEF of 20% to 25%, mildly dilated left atrium, mild to moderate MR 1.5 x 1.0 echodense structure attached to tricuspid valve suspicious for vegetation, [id number]-[id number]-sdxsxniy TR is present. No pericardial effusion and grade 4 atheroma noted near the aortic arch and upper descending thoracic aorta. 2. Cardiac catheterization in 2003 showed normal coronaries. 3. Lexiscan Cardiolite on July 2014 showed no obvious stress-induced ischemia, small fixed defect anterior apical. Unit #: [id number] #: [id number] Patient: HEMALATHA MATTSON 4. History of left atrial myxoma thrombus post resection 2003. 5. History of PAF, not currently on anticoagulation. 6. Hypertension. 7. Prior CVA. 8. COPD. 9. Nicotine abuse. PAST SURGICAL HISTORY 1. Left atrial myxoma resection in 2003. 2. Hysterectomy. SOCIAL HISTORY The patient is retired. She continues to smoke. Denies illicit drug use or alcohol. FAMILY HISTORY Negative for coronary artery disease. ALLERGIES To morphine. HOME MEDICATIONS 1. Aspirin 81 mg p.o. daily. 2. Lipitor 80 mg p.o. at bedtime. 3. Calcium acetate two tablets p.o. t.i.d. 4. Fish oil 1000 mg p.o. t.i.d. 5. Gabapentin 300 mg p.o. t.i.d. 6. Paxil 40 mg p.o. daily. 7. Spiriva 1 puff inhalation daily. 8. Symbicort 160/4.5 two puffs inhalation daily. 9. Vitamin D3 50,000 units p.o. q.month. 10. MiraLAX daily 17 g. 11. Lasix 40 mg p.o. b.i.d. 12. Acid controller 20 mg p.o. at bedtime. PHYSICAL EXAMINATION VITAL SIGNS: Temperature 98.3, respiratory rate 16, pulse is 79, and blood pressure 104/62. GENERAL: This is a pleasant 71-year-old female, in no acute distress. HEENT: Head is atraumatic and normocephalic. Pupils are equal and round. NECK: Trachea is midline. No lymphadenopathy or thyromegaly. Carotid upstrokes are normal. CARDIOVASCULAR: S1, S2. Regular rate and rhythm. No murmurs, gallops, or rubs. LUNGS: Clear to auscultation. Diminished in the bases. ABDOMEN: Soft, nontender, nondistended. Bowel sounds are present. EXTREMITIES: Pulses are palpable. No clubbing, cyanosis, or edema is noted. NEUROLOGIC: She is awake, alert, and oriented. She is a poor historian in regard to her medical history, otherwise moves all extremities equally. Follows commands with ease. DIAGNOSTIC STUDIES LABORATORY: Glucose 99, BUN 24, creatinine 1.8, sodium 135, potassium 4.3 cm. Coags are within normal limits. Hemoglobin 9.5, hematocrit 29.4, WBCs 19.0, platelet count 340. IMAGING: Chest x-ray shows a new infiltrate in the left lung base Unit #: [id number] #: [id number] Patient: HEMALATHA MATTSON suspicious for pneumonia. PICC is present with the tip in the SVC. CT of the head shows no acute intracranial abnormality. Stable, age-related atrophy and moderate chronic small-vessel disease. Stable, remote infarcts in the bilateral cerebellar hemispheres. CARDIOVASCULAR STUDIES: EKG shows normal sinus rhythm, rate of 84 beats per minute. QTc interval of 432 milliseconds. No acute ischemic change. IMPRESSION 1. Status post fall, questionable etiology. 2. Pneumonia. 3. Urinary tract infection. 4. History of bacterial endocarditis. 5. History of atrial myxoma, status post resection 2013. 6. History of nonischemic cardiomyopathy, last ejection fraction noted to be 20% to 25% per 2D echocardiogram in 2013. 7. Paroxysmal atrial fibrillation, not on anticoagulation. 8. Hypertension. 9. Tobacco abuse. 10. History of diskitis with MRSA bacteremia, this is followed by Dr. Banks in the past. 11. Anemia of chronic disease. PLAN We have been asked to see the patient for following secondary to her past history of nonischemic cardiomyopathy, left atrial myxoma, and paroxysmal atrial fibrillation. At present, the patient appears compensated from a cardiac standpoint. She is currently in normal sinus rhythm. She has no complaints of chest pain, syncope, or palpitations. At this time, because of her low blood pressure, we will not be able to start beta-linus therapy or Cardizem. We will start amiodarone to maintain normal sinus rhythm. She will be started on amiodarone 200 mg p.o. t.i.d. She will have EKG, CBC, BMP in the morning. The patient will be started on Lovenox 1 mg/kg subcu daily secondary to renal dysfunction. Further recommendations pending Dr. Tate's assessment. Dictated by... Alexis Mckeon/modl TD: 02/07/2017 05:24 JOB #: [id number] CONSULTATION REPORT Page 1 of 1 X Tabby Monroy WELDER APPRENTICE [employer] X CONSULTATION REPORT
[~2017-02-04 12:47] MED LIST changes: +ASPIRIN81 M2 PO; +CALCIUM ACETAT667 M2 PO; +CUBICIN RF500 MG IV; +FAMOTIDINE PO; +FISH OIL 1,0001 EAC1 PO; +GABAPENTIN300 M2 PO; +HYDROCODON-ACE1 EAC5 PO; +LASIX20 MG PO; +MIRALAX17 GM PO; +PATIENT'S PHARMACY; +SPIRIVA RESPIMAT4 G1 INH; +VITAMIN D350000 UNIT PO
[2017-02-04 15:32] LABS: BASOPHIL% 0.1 % (0-2.5); EOSINOPHIL# 4.1 X10e3 (0-0.7); EOSINOPHIL% 18.9 % (0.0-7.0); HEMATOCRIT 29.3 % (35.0-45.0); HEMOGLOBIN 9.6 gm/dL (12.0-16.0); LYMPHOCYTE# 1.6 X10e3 (1.0-3.5); LYMPHOCYTE% 7.2 % (17.0-45.0); MEAN CELL VOLUME 91.8 FL (83-96); MEAN CORPUSCULAR HEMOGLOBIN 30.1 PG (28-34); MEAN CORPUSCULAR HGB CONC 32.8 g/dL (30-36); MONOCYTE# 1.1 X10e3 (0-1.0); NEUTROPHIL# 14.9 X10e3 (1.5-7.1); NEUTROPHIL% 68.8 % (40-75); PLATELET COUNT 369 X10e3 (140-420); RED BLOOD COUNT 3.19 X10e (3.90-5.30); RED CELL DISTRIBUTION WIDTH 16.7 % (11.0-15.5); WHITE BLOOD COUNT 21.7 X10e3 (4.0-10.5)
[2017-02-04 15:33] LABS: DIFF IND YES
[2017-02-04 15:41] LABS: INR 1.1; PROTHROMBIN TIME (PATIENT) 11.4 SECONDS (10.0-11.7)
[2017-02-04 15:58] LABS: ALBUMIN SERUM 3.1 g/dL (3.5-5.0); BILIRUBIN, DIRECT 0.1 mg/dL (0.0-0.2); BILIRUBIN,INDIRECT 0.7 mg/dL (0.0-0.9); BILIRUBIN,TOTAL 0.8 mg/dL (0.2-2.0); BUN/CREATININE RATIO 18.88; CALCIUM SERUM 9.9 mg/dL (8.4-10.2); CREATININE SERUM 1.8 mg/dL (0.6-1.4); GLOM FILT RATE Estimated 27.6 mL/min (>60)
[2017-02-04 16:40] LABS: ANISOCYTOSIS MOD; PLATELET ESTIMATE NORMAL (NORMAL); POIKILOCYTOSIS SL
[2017-02-04] MEDS ORDERED: LASIX PO (17:23)
[2017-02-04] MEDS ORDERED: ACID CONTROLLER20 MG PO (17:23)
[2017-02-04 17:51] LABS: URINE SOURCE CLEAN CATCH
[2017-02-04 17:59] LABS: URINE APPEARANCE CLEAR; URINE BILIRUBIN NEG (NEG); URINE BLOOD TRACE (NEG); URINE COLOR YELLOW; URINE GLUCOSE NEG (NEG); URINE KETONE NEG (NEG); URINE LEUKOCYTE ESTERASE TRACE (NEG); URINE NITRATE NEG (NEG); URINE PROTEIN NEG (NEG); URINE SPECIFIC GRAVITY 1.009 (1.003-1.035); URINE UROBILINOGEN 0.2 MG/DL (NEG)
[2017-02-04 18:01] LABS: CULTURE INDICATED? YES; URBCS1 AUWI 0-2 /[HPF] (0-2); URINE BACTERIA AUWI 4+ (NEGATIVE); URINE SQUAMOUS EPITHELIAL CELL NONE SEEN /[HPF]
[2017-02-04] MEDS ORDERED: DAPTOMYCIN500 MG IV (18:40)
[2017-02-05 06:09] LABS: HEMATOCRIT 27.4 % (35.0-45.0); HEMOGLOBIN 8.9 gm/dL (12.0-16.0); MEAN CELL VOLUME 92.4 FL (83-96); MEAN CORPUSCULAR HEMOGLOBIN 30.1 PG (28-34); MEAN CORPUSCULAR HGB CONC 32.6 g/dL (30-36); RED BLOOD COUNT 2.96 X10e (3.90-5.30); RED CELL DISTRIBUTION WIDTH 16.7 % (11.0-15.5)
[2017-02-05 06:58] LABS: BUN/CREATININE RATIO 15.55; CALCIUM SERUM 9.4 mg/dL (8.4-10.2); CREATININE SERUM 1.8 mg/dL (0.6-1.4); GLOM FILT RATE Estimated 27.6 mL/min (>60); POTASSIUM 4.2 mmol/L (3.5-5.1)
[2017-02-06 05:39] LABS: BASOPHIL# 0.1 X10e3 (0-0.3); BASOPHIL% 0.6 % (0-2.5); EOSINOPHIL# 6.2 X10e3 (0-0.7); EOSINOPHIL% 32.6 % (0.0-7.0); HEMATOCRIT 29.4 % (35.0-45.0); HEMOGLOBIN 9.5 gm/dL (12.0-16.0); LYMPHOCYTE# 2.2 X10e3 (1.0-3.5); LYMPHOCYTE% 11.6 % (17.0-45.0); MEAN CELL VOLUME 91.4 FL (83-96); MEAN CORPUSCULAR HEMOGLOBIN 29.7 PG (28-34); MEAN CORPUSCULAR HGB CONC 32.5 g/dL (30-36); MEAN PLATELET VOLUME 7.4 FL (6.5-11.5); MONOCYTE# 1.1 X10e3 (0-1.0); MONOCYTE% 5.8 % (3.0-12.0); NEUTROPHIL# 9.4 X10e3 (1.5-7.1); NEUTROPHIL% 49.4 % (40-75); PLATELET COUNT 340 X10e3 (140-420); RED BLOOD COUNT 3.21 X10e (3.90-5.30); RED CELL DISTRIBUTION WIDTH 16.3 % (11.0-15.5)
[2017-02-06 05:40] LABS: DIFF IND YES
[2017-02-06 06:41] LABS: PLATELET ESTIMATE NORMAL (NORMAL)
[2017-02-06 06:42] LABS: HYPOCHROMIA SL
[2017-02-06 07:23] LABS: BUN/CREATININE RATIO 13.33; CALCIUM SERUM 9.9 mg/dL (8.4-10.2); CREATININE SERUM 1.8 mg/dL (0.6-1.4); GLOM FILT RATE Estimated 27.6 mL/min (>60); POTASSIUM 4.3 mmol/L (3.5-5.1)
[2017-02-07 05:46] LABS: BASOPHIL# 0.1 X10e3 (0-0.3); BASOPHIL% 0.6 % (0-2.5); EOSINOPHIL# 5.3 X10e3 (0-0.7); EOSINOPHIL% 28.2 % (0.0-7.0); HEMATOCRIT 29.8 % (35.0-45.0); HEMOGLOBIN 9.8 gm/dL (12.0-16.0); LYMPHOCYTE# 2.3 X10e3 (1.0-3.5); LYMPHOCYTE% 12.4 % (17.0-45.0); MEAN CELL VOLUME 91.8 FL (83-96); MEAN CORPUSCULAR HEMOGLOBIN 30.2 PG (28-34); MEAN CORPUSCULAR HGB CONC 32.9 g/dL (30-36); MEAN PLATELET VOLUME 7.7 FL (6.5-11.5); MONOCYTE# 1.2 X10e3 (0-1.0); MONOCYTE% 6.2 % (3.0-12.0); NEUTROPHIL# 9.8 X10e3 (1.5-7.1); NEUTROPHIL% 52.6 % (40-75); PLATELET COUNT 339 X10e3 (140-420); RED BLOOD COUNT 3.25 X10e (3.90-5.30); WHITE BLOOD COUNT 18.7 X10e3 (4.0-10.5)
[2017-02-07 05:49] LABS: DIFF IND NO
[2017-02-07 06:57] LABS: BUN/CREATININE RATIO 11.57; CALCIUM SERUM 10.3 mg/dL (8.4-10.2); CREATININE SERUM 1.9 mg/dL (0.6-1.4); GLOM FILT RATE Estimated 25.9 mL/min (>60); MAGNESIUM 1.5 mg/dL (1.6-3.0); POTASSIUM 4.1 mmol/L (3.5-5.1)
[2017-02-08 05:40] LABS: HEMATOCRIT 29.7 % (35.0-45.0); HEMOGLOBIN 9.7 gm/dL (12.0-16.0); MEAN CELL VOLUME 91.6 FL (83-96); MEAN CORPUSCULAR HEMOGLOBIN 29.9 PG (28-34); MEAN CORPUSCULAR HGB CONC 32.6 g/dL (30-36); MEAN PLATELET VOLUME 7.3 FL (6.5-11.5); RED BLOOD COUNT 3.24 X10e (3.90-5.30); RED CELL DISTRIBUTION WIDTH 16.1 % (11.0-15.5); WHITE BLOOD COUNT 17.4 X10e3 (4.0-10.5)
[2017-02-08 06:22] LABS: BUN/CREATININE RATIO 12.1; CALCIUM SERUM 9.5 mg/dL (8.4-10.2); CREATININE SERUM 1.9 mg/dL (0.6-1.4); GLOM FILT RATE Estimated 25.9 mL/min (>60); MAGNESIUM 2.2 mg/dL (1.6-3.0); POTASSIUM 3.8 mmol/L (3.5-5.1)
[2017-02-08 10:59] LABS: BODY FLUID APPEARANCE CLOUDY; BODY FLUID SOURCE BRONCHIAL LAVAGE
[2017-02-09 06:05] LABS: HEMATOCRIT 28.6 % (35.0-45.0); HEMOGLOBIN 9.5 gm/dL (12.0-16.0); MEAN CELL VOLUME 92.1 FL (83-96); MEAN CORPUSCULAR HEMOGLOBIN 30.7 PG (28-34); MEAN CORPUSCULAR HGB CONC 33.3 g/dL (30-36); MEAN PLATELET VOLUME 6.8 FL (6.5-11.5); RED BLOOD COUNT 3.11 X10e (3.90-5.30); RED CELL DISTRIBUTION WIDTH 15.9 % (11.0-15.5); WHITE BLOOD COUNT 13.2 X10e3 (4.0-10.5)
[2017-02-09 06:46] LABS: BUN/CREATININE RATIO 12.72; CALCIUM SERUM 9.2 mg/dL (8.4-10.2); CREATININE SERUM 2.2 mg/dL (0.6-1.4); GLOM FILT RATE Estimated 21.7 mL/min (>60); POTASSIUM 4.4 mmol/L (3.5-5.1)
[2017-02-10 07:10] LABS: BUN/CREATININE RATIO 19.5; CALCIUM SERUM 9.1 mg/dL (8.4-10.2); GLOM FILT RATE Estimated 24.3 mL/min (>60); POTASSIUM 4.8 mmol/L (3.5-5.1)
[2017-02-10] MEDS ORDERED: AMIODARONE PO (16:13)
[2017-02-10] MEDS ORDERED: ACETAMINOPHEN325 MG PO (16:14)
[2017-02-10] MEDS ORDERED: DIFLUCAN100 MG PO (16:16)
[2017-02-10] MEDS ORDERED: HUMIBID-LA600 MG PO (16:20)
[2017-02-10] MEDS ORDERED: DURAGESIC1 EAC1 TD (16:21)
[2017-02-10] MEDS ORDERED: TRAMADOL HCL50 M2 PO (16:22)
[2017-02-10] MEDS ORDERED: TEFLARO600 MG IV (16:23)
[2017-02-10] MEDS ORDERED: ELIQUIS2.5 MG PO (16:24)
== END 2017-02-10 18:10 | disposition home health service (06) | DRG 166 ==
LOC: CED 12:47 → CEDOF 17:35 → C5C 20:26
PROVIDERS: Emergency Medicine; Hospitalist; Internal Medicine; Internal Medicine Nephrology; Internal Medicine Pulmonary Disease; Physician Assistant Medical
PROC: 0BC58ZZ Extirpation of Matter from Right Middle Lobe Bronchus, Via Natural or Artificial Opening Endoscopic (ICD-10-PCS; 2017-02-08)
PROC: 0B9F8ZX Drainage of Right Lower Lung Lobe, Via Natural or Artificial Opening Endoscopic, Diagnostic (ICD-10-PCS; principal; 2017-02-08 08:15)
PROC: 0BC68ZZ Extirpation of Matter from Right Lower Lobe Bronchus, Via Natural or Artificial Opening Endoscopic (ICD-10-PCS; 2017-02-08 08:15)
DX: J44.0 Chronic obstructive pulmonary disease with (acute) lower respiratory infection (principal); J18.9 Pneumonia, unspecified organism; J96.01 Acute respiratory failure with hypoxia; N17.9 Acute kidney failure, unspecified; I13.0 Hypertensive heart and chronic kidney disease with heart failure and stage 1 through stage 4 chronic kidney disease, or unspecified chronic kidney disease; I50.22 Chronic systolic (congestive) heart failure; I42.8 Other cardiomyopathies; N39.0 Urinary tract infection, site not specified; J44.1 Chronic obstructive pulmonary disease with (acute) exacerbation; N18.3 Chronic kidney disease, stage 3 (moderate); I48.91 Unspecified atrial fibrillation; E78.5 Hyperlipidemia, unspecified; Z86.14 Personal history of Methicillin resistant Staphylococcus aureus infection; I25.10 Atherosclerotic heart disease of native coronary artery without angina pectoris; D63.1 Anemia in chronic kidney disease; Z86.73 Personal history of transient ischemic attack (TIA), and cerebral infarction without residual deficits; Z90.710 Acquired absence of both cervix and uterus; Z79.82 Long term (current) use of aspirin; I25.2 Old myocardial infarction; B96.1 Klebsiella pneumoniae [K. pneumoniae] as the cause of diseases classified elsewhere; F17.200 Nicotine dependence, unspecified, uncomplicated; Z71.6 Tobacco abuse counseling; M46.46 Discitis, unspecified, lumbar region
CPT/HCPCS: 36415; 70450; 71010; 71250; 80048; 80076; 80200; 81003; 82308; 82728; 83540; 83550; 83605; 83735; 84484; 85025; 85027; 85610; 85730; 86334; 87040; 87070; 87086; 87088; 87102; 87106; 87107; 87116; 87186; 87205; 87206; 87252; 87254; 87278; 88108; 88305; 88312; 89051; 93005; 94640; 94664; 94760; 96360; 97162; 99285; G8978-GP; G8979-GP; J0171; J0692; J1650; J2020; J2543; J2916; J2920; J3260; J3370; J3475

== ENCOUNTER 2017-02-15 17:12 | Emergency (ER) | payer OTHER ==
[~2017-02-15] VITALS: Ht 172.7 cm; Wt 60.8 kg
--- NOTE | ~2017-02-15 | CT71 ---
[facility] A Service of [facility] RADIOLOGY TEXT RESULTS PATIENT: HEMALATHA MATTSON LOCATION: [facility] : 44 UNIT #: [id number] AGE: [address]: Matilde Johnson MD SEX: F ORDER DR: [id number] [facility] [address] [place], [place] [address] [id number] E MR#: [id number] Acc #: [id number] NAME: HEMALATHA MATTSON. : 1945 SEX: F STUDY DATE/TIME: 02/15/2017 19:54 UNIT: [facility] ROOM: STUDY DESCRIPTION: CT Head Wo Contrast Attending Physician: Matilde Johnson M.D. Ordering Physician: Matilde Johnson M.D. Primary Care Physician: Violetta Schrader M.D. MEDICAL IMAGING REPORT This report is preliminary unless electronic signature is present EXAM CT head, 02/15/2017 HISTORY Fall today getting up from toilet. Lower back pain. Headache prior to fall today. Hit back of head. No loss of consciousness. TECHNIQUE CT head performed skull base through vertex without intravenous contrast. This CT exam was performed with one or more of the following radiation dose reduction techniques: automatic exposure control, adjustment of mA and/or kV according to patient size, and iterative reconstruction. COMPARISON 02/04/2017 FINDINGS Brainstem is unremarkable. Cerebellum and cerebral hemispheres show overall preservation of garvin matter-white matter differentiation. No acute hemorrhage. No evidence of acute cortical ischemia. No intracranial mass effect or abnormal fluid collection. Periventricular and deep white matter tract probable sequelae of chronic microvascular ischemia are stable. There is mild generalized atrophy which is stable. There are small chronic areas of encephalomalacia/chronic ischemia in the bilateral cerebellar hemispheres. No fracture. Some minimal mucosal thickening in the right mastoid air cells. Stable. Correlate clinically for any indication of mastoid inflammation. Cavernous carotid arterial calcifications. Dictated by... Jarvis Strong M.D. [facility] A Service of [facility] RADIOLOGY TEXT RESULTS PATIENT: HEMALATHA MATTSON LOCATION: [facility] : 44 UNIT #: [id number] AGE: [address]: Matilde Johnson MD SEX: F ORDER DR: THIS IS AN ELECTRONICALLY VERIFIED REPORT Jarvis Strong M.D. at 02/18/2017 1:22 PM Malvin TD: 02/16/2017 10:39 JOB #: [id number] MEDICAL IMAGING REPORT Page 1 of 1 COPY
--- NOTE | ~2017-02-15 | CT4 ---
[facility] A Service of [facility] RADIOLOGY TEXT RESULTS PATIENT: HEMALATHA MATTSON LOCATION: [facility] : 44 UNIT #: [id number] AGE: [address]: Matilde Johnson MD SEX: F ORDER DR: [id number] [facility] [address] [place], [place] [address] [id number] E MR#: [id number] Acc #: [id number] NAME: HEMALATHA MATTSON. : 1945 SEX: F STUDY DATE/TIME: 02/15/2017 19:58 UNIT: [facility] ROOM: STUDY DESCRIPTION: CT Abd and Pelv Wo Cont Attending Physician: Matilde Johnson M.D. Ordering Physician: Matilde Johnson M.D. Primary Care Physician: Violetta Schrader M.D. MEDICAL IMAGING REPORT This report is preliminary unless electronic signature is present EXAM CT abdomen and pelvis, 02/15/2017 HISTORY Pain. Fell today getting up from toilet. Lower back pain. Headache prior to fall. Hit back of head. No loss of consciousness. TECHNIQUE CT abdomen and pelvis performed without administration of oral or intravascular contrast. This CT exam was performed with one or more of the following radiation dose reduction techniques: automatic exposure control, adjustment of mA and/or kV according to patient size, and iterative reconstruction. FINDINGS Study limited in the absence of contrast material. Comparison 11/01/2016. Emphysema at the bilateral lung bases. Dependent atelectasis at the bilateral lung bases. Focal area of airspace disease at the anterior right lung base just above the diaphragm. Less pronounced than on a CT examination dated 02/06/2017. Probably an area of atelectasis or decreasing pneumonitis. The patient is status post median sternotomy. Heart upper limits of normal in size. Liver, gallbladder, spleen, pancreas, adrenal glands, kidneys normal. CT PELVIS: No inguinal adenopathy. Status post hysterectomy. No suspicious adnexal structures. Moderate to marked distension of the urinary bladder measuring up to 13.8 cm in craniocaudal extent. No obstructing process is seen. This might be physiologic in nature. Correlate clinically. If patient unable to void to completion, consider Faustin catheter placement. There is no free fluid in the pelvis. No pelvic or retroperitoneal adenopathy. Distal esophagus, stomach, small bowel unremarkable. The appendix is not clearly identified but no STS. [facility] A Service of [facility] RADIOLOGY TEXT RESULTS PATIENT: HEMALATHA MATTSON LOCATION: [facility] : 44 UNIT #: [id number] AGE: [address]: Matilde Johnson MD SEX: F ORDER DR: pericecal inflammatory change is seen. There is a large volume of stool in the ascending and proximal to mid transverse colon with relatively smaller caliber distal transverse and descending colon. Air and stool seen throughout colon to rectum. No obstructing process is seen. This might be physiologic in nature. It could be a reflection of some degree of constipation. There is no acute colonic inflammatory change. Atherosclerotic arterial calcifications. No aneurysm. Abnormal appearance of the L1-L2 intervertebral disc space. There is narrowing and irregularity of the disc space with progressive destruction of inferior endplate L1 and superior endplate L2. There is some bony fragmentation along the endplates. This is more pronounced than on CT chest 02/06/2017. There is haziness in the paraspinal fat at this level with a rind of soft tissue slightly hypodense material seen along the lateral and anterior aspects of the inferior L1 and superior L2 vertebral bodies measuring up to about 9.0 mm in thickness, previously 4.0 mm in thickness. I do not clearly see evidence of spinal canal compromise but spinal canal contents would best be further evaluated with MRI if the patient is a candidate. The appearance is concerning for worsening L1-L2 discitis and associated L1-L2 osteomyelitis. Neurosurgical consultation strongly recommended. No other clearly acute bony abnormalities are seen. IMPRESSION 1. Abnormal examination. Please see the complete dictation above for full details. The most concerning acute finding is progression of abnormality at the L1-L2 intervertebral disc space. I have spoken about this with Dr. Johnson. Apparently the patient is undergoing treatment for discitis. There is increased widening of the intervertebral disc space at L1-L2 with increased irregularity of the superior endplate L2 and inferior endplate of L1 with some bony fragmentation. There is some loss of height in both vertebral bodies more pronounced anteriorly at L2. Sclerotic change adjacent to the abnormal portions of the endplates. Findings concerning for worsening discitis and osteomyelitis at these levels. There is a subtle but definite soft tissue density rind around the inferior L1 and superior L2 vertebral bodies laterally and anteriorly currently measuring up to about 9.0 mm in thickness, previously about 4.0 mm in thickness. Some of this may reflect reactive edema but the possibility of spreading infection should be considered. I do not see definite bony canal compromise of the spine at this level. The spinal canal contents would best be fully assessed with MRI if the patient is a candidate. 2. Gsasonbf-pk-mojhs stool burden in ascending colon and proximal to mid transverse colon, presumed physiologic in nature or reflecting constipation. No acute inflammatory change or obstructing process is seen. There is air and stool seen throughout the remainder of colon to the rectum. 3. There is urinary bladder distension measuring up to approximately 13.8 cm in craniocaudal extent. Presumed physiologic in nature. Correlate with any clinical indications of urinary retention. If the [facility] A Service of [facility] RADIOLOGY TEXT RESULTS PATIENT: HEMALATHA MATTSON [id number] 44 UNIT #: [id number] AGE: [address]: Matilde Johnson MD SEX: F ORDER DR: patient cannot void to completion, consider Faustin catheter placement. 4. Decreasing airspace disease right lung base anteriorly probably reflecting decreasing atelectasis or pneumonia. There is some minimal dependent atelectasis at the posterior lung bases. Underlying emphysema lung bases as before. 5. Gallbladder, pancreas, kidneys unremarkable. 6. Hysterectomy. Dictated by... Jarvis Strong M.D. THIS IS AN ELECTRONICALLY VERIFIED REPORT Jarvis Strong M.D. at 02/18/2017 1:22 PM Malvin TD: 02/16/2017 10:48 JOB #: [id number] MEDICAL IMAGING REPORT Page 1 of 1 COPY
--- NOTE | ~2017-02-15 | CR72 ---
[facility] A Service of [facility] RADIOLOGY TEXT RESULTS PATIENT: HEMALATHA MATTSON LOCATION: [facility] : 44 UNIT #: [id number] AGE: [address]: Matilde Johnson MD SEX: F ORDER DR: [id number] [facility] [address] [place], [place] [address] [id number] E MR#: [id number] Acc #: [id number] NAME: HEMALATHA MATTSON. : 1945 SEX: F STUDY DATE/TIME: 02/15/2017 18:09 UNIT: [facility] ROOM: STUDY DESCRIPTION: CR Chest Single View Portable Attending Physician: Matilde Johnson M.D. Ordering Physician: Matilde Johnson M.D. Primary Care Physician: Violetta Schrader M.D. MEDICAL IMAGING REPORT This report is preliminary unless electronic signature is present EXAM Portable chest HISTORY Shortness of air today. Fell. FINDINGS The cardiac size is near the upper limits of normal. Normal pulmonary vascularity. Mild interstitial prominence in the lower lungs bilaterally, similar to 02/04/2017. This could be secondary to interstitial edema or scarring. No new airspace infiltrates. No effusions. Right arm approach PICC tip is at the junction of the brachiocephalic veins in the right upper mediastinum and has apparently been pulled back approximately 2 cm since the prior study. IMPRESSION 1. Mild interstitial prominence in the lower lungs bilaterally could be secondary to scarring or edema. No focal airspace infiltrates. 2. Borderline to mild cardiac enlargement. Dictated by... Miguel Melendez M.D. THIS IS AN ELECTRONICALLY VERIFIED REPORT Miguel Melendez M.D. at 02/16/2017 2:37 PM DFL/ting TD: 02/16/2017 09:18 JOB #: [id number] [facility] A Service of [facility] RADIOLOGY TEXT RESULTS PATIENT: HEMALATHA MATTSON LOCATION: [facility] #: [id number] : 43 UNIT #: [id number] AGE: [address]: Matilde Johnson MD SEX: F ORDER DR: MEDICAL IMAGING REPORT Page 1 of 1 COPY
--- NOTE | ~2017-02-15 | EKG ---
PATIENT: HEMALATHA MATTSON UNIT #: [id number] Ventricular Rate: 81 BPM Atrial Rate: 81 BPM P-R Interval: 266 ms QRS Duration: 110 ms Q-T Interval: 398 ms QTC Calculation(Bezet): 462 ms P Beccaria: -21 degrees Calculated R Beccaria: 54 degrees Calculated T Beccaria: 84 degrees Diagnosis Line: Sinus rhythm with 1st degree A-V block with Diagnosis Line: occasional Premature ventricular complexes Diagnosis Line: Low voltage QRS Diagnosis Line: Incomplete left bundle branch block Diagnosis Line: Borderline ECG Diagnosis Line: When compared with ECG of 07-FEB-2017 06:57, Diagnosis Line: Sinus rhythm has replaced Ectopic atrial rhythm Diagnosis Line: QRS duration has increased Diagnosis Line: Confirmed by JOE LINCOLN MD ([id number]) on Diagnosis Line: 02/16/2017 2:01:19 PM INTERPRETING MD: SALAZAR MACE
[~2017-02-15 17:12] MED LIST changes: +ACETAMINOPHEN325 MG PO; +ACID CONTROLLER20 MG PO; +AMIODARONE PO; +DAPTOMYCIN500 MG IV; +DIFLUCAN100 MG PO; +DURAGESIC1 EAC1 TD; +ELIQUIS2.5 MG PO; +HUMIBID-LA600 MG PO; +TEFLARO600 MG IV; +TRAMADOL HCL50 M2 PO
[2017-02-15 18:02] LABS: URINE SOURCE CATH
[2017-02-15 18:21] LABS: URINE APPEARANCE CLEAR; URINE BILIRUBIN NEG (NEG); URINE BLOOD NEG (NEG); URINE COLOR YELLOW; URINE GLUCOSE NEG (NEG); URINE KETONE NEG (NEG); URINE LEUKOCYTE ESTERASE NEG (NEG); URINE NITRATE NEG (NEG); URINE PROTEIN NEG (NEG); URINE SPECIFIC GRAVITY 1.009 (1.003-1.035); URINE UROBILINOGEN 0.2 MG/DL (NEG)
[2017-02-15 18:21] LABS: BASOPHIL# 0.1 X10e3 (0-0.3); BASOPHIL% 0.5 % (0-2.5); EOSINOPHIL# 0.3 X10e3 (0-0.7); EOSINOPHIL% 2.8 % (0.0-7.0); HEMATOCRIT 21.3 % (35.0-45.0); HEMOGLOBIN 7.2 gm/dL (12.0-16.0); LYMPHOCYTE# 1.5 X10e3 (1.0-3.5); LYMPHOCYTE% 12.8 % (17.0-45.0); MEAN CORPUSCULAR HEMOGLOBIN 31.1 PG (28-34); MEAN CORPUSCULAR HGB CONC 33.8 g/dL (30-36); MEAN PLATELET VOLUME 7.1 FL (6.5-11.5); MONOCYTE# 1.5 X10e3 (0-1.0); MONOCYTE% 12.4 % (3.0-12.0); NEUTROPHIL# 8.5 X10e3 (1.5-7.1); NEUTROPHIL% 71.5 % (40-75); PLATELET COUNT 291 X10e3 (140-420); RED BLOOD COUNT 2.32 X10e (3.90-5.30); RED CELL DISTRIBUTION WIDTH 15.7 % (11.0-15.5); WHITE BLOOD COUNT 11.9 X10e3 (4.0-10.5)
[2017-02-15 18:22] LABS: DIFF IND YES
[2017-02-15 18:27] LABS: CULTURE INDICATED? NO
[2017-02-15 18:32] LABS: INR 1.1; PARTIAL THROMBOPLASTIN TIME 33.6 SECONDS (23.5-31.3); PROTHROMBIN TIME (PATIENT) 11.5 SECONDS (10.0-11.7)
[2017-02-15 18:41] LABS: PLATELET ESTIMATE NORMAL (NORMAL)
[2017-02-15 18:42] LABS: ANISOCYTOSIS MOD
[2017-02-15 18:49] LABS: ALBUMIN SERUM 3.1 g/dL (3.5-5.0); BILIRUBIN, DIRECT 0.1 mg/dL (0.0-0.2); BILIRUBIN,INDIRECT 0.4 mg/dL (0.0-0.9); BILIRUBIN,TOTAL 0.5 mg/dL (0.2-2.0); BUN/CREATININE RATIO 16.84; CALCIUM SERUM 8.2 mg/dL (8.4-10.2); CREATININE SERUM 1.9 mg/dL (0.6-1.4); GLOM FILT RATE Estimated 25.9 mL/min (>60); POTASSIUM 3.8 mmol/L (3.5-5.1); PROTEIN TOTAL SERUM 6.3 g/dL (6.0-8.3)
== END 2017-02-16 02:43 | disposition short-term general hospital (02) ==
LOC: CED 17:12
PROVIDERS: Emergency Medicine
DX: A41.9 Sepsis, unspecified organism (principal); I50.9 Heart failure, unspecified; R65.20 Severe sepsis without septic shock; N18.3 Chronic kidney disease, stage 3 (moderate); I95.9 Hypotension, unspecified; D64.9 Anemia, unspecified; M46.40 Discitis, unspecified, site unspecified; I48.91 Unspecified atrial fibrillation; J44.9 Chronic obstructive pulmonary disease, unspecified; I25.10 Atherosclerotic heart disease of native coronary artery without angina pectoris; I13.0 Hypertensive heart and chronic kidney disease with heart failure and stage 1 through stage 4 chronic kidney disease, or unspecified chronic kidney disease; Z90.710 Acquired absence of both cervix and uterus; F17.210 Nicotine dependence, cigarettes, uncomplicated; Z88.5 Allergy status to narcotic agent; Z79.82 Long term (current) use of aspirin; Z79.899 Other long term (current) drug therapy
CPT/HCPCS: 70450; 71010; 74176; 80048; 80076; 81003; 83605; 83880; 85025; 85610; 85730; 87040; 87077; 87181; 93005; 96360; 96374; 96375; 99291; 99292; J2543; J3260; J3370